=== PATIENT | female | born 1950 | race Caucasian/White ===

== ENCOUNTER 2019-04-04 07:52 | Day surgery (SDC) | payer OTHER, MEDICARE ==
--- NOTE | 2019-04-03 15:51 | RAD REPORT ---
EXAM DESCRIPTION: Reilly Dorantes (2 Views)04/03/2019 3:46 pm CLINICAL HISTORY: Preop for gallbladder surgery. Abdominal pain COMPARISON: 2008 FINDINGS: The lungs appear clear of acute infiltrate. The heart is normal size IMPRESSION: No acute abnormalities displayed
[2019-04-03 16:08] LABS: Absolute Lymphocytes (CBC) 0.7 K/uL (0.7-4.9); Basophils % 0.4 % (0-1.3); Hematocrit 42.1 % (36.0-45.0); MPV 7.2 fL (7.6-11.3); RBC Red Blood Cell Count 4.81 M/uL (3.86-4.86)
[2019-04-03 16:30] LABS: Albumin 3.8 g/dL (3.4-5.0); Bilirubin Direct 0.1 mg/dL (0-0.2); Bilirubin Total 0.4 mg/dL (0.2-1.0); Potassium 4.1 mmol/L (3.5-5.1); Protein, Total 7.2 g/dL (6.4-8.2)
[2019-04-03 16:36] LABS: Albumin 3.7 g/dL (3.4-5.0); Bilirubin Total 0.5 mg/dL (0.2-1.0); Protein, Total 6.9 g/dL (6.4-8.2)
[2019-04-03 16:43] LABS: Thyroid Stimulating Hormone 4.51 uIU/mL (0.360-3.740)
--- NOTE | 2019-04-03 22:17 | EKG ---
Test Date: 2019-04-03 Test Time: 15:31:51 [employer] Systems Administrator: CHRIS MEASUREMENT RESULTS: Intervals: Rate: 73 LA: 140 QRSD: 68 QT: 388 QTc: 427 [place]: P: 62 LA: 140 QRS: 14 T: 45 INTERPRETIVE STATEMENTS: Normal sinus rhythm Normal ECG Compared to ECG 02/12/2008 06:45:47 Sinus bradycardia no longer present Electronically Signed On 04-03-19 22:16:25 CDT by Carrington Valiente
[~2019-04-04 07:52] MED LIST: FENTANYL CITR 100 MCG/2 ML ONE; GLYCOPYRROLATE 0.2 MG/ML SYR ONE; LIDOCAINE 2% MPF 5 ML VIAL ONE; MIDAZOLAM HCL 2 MG/2 ML INJ ONE; PROPOFOL 200 MG/20 ML VIAL IV ONE; ROCURONIUM 50 MG/5 ML VIAL IV ONE; dexAMETHasone 10 MG/ML VIAL ONE
[2019-04-04] MEDS ORDERED: BUPIVACAINE 0.5% PF 10 ML VIAL ONE (08:05)
[2019-04-04] MEDS ORDERED: CEFOXITIN/SWI 1gm 1 GM/10 ML SYR ONE (08:07)
[2019-04-04] MEDS ORDERED: Ringers Lactate 1,000 ML IV ONE (08:07)
[2019-04-04] MEDS ORDERED: KETOROLAC 30 MG/ML INJ ONE (09:02)
[2019-04-04] MEDS ORDERED: NEOSTIGMINE 1 MG/ML -10 ML VIAL ONE (09:04)
[2019-04-04] MEDS ORDERED: GLYCOPYRROLATE 0.2 MG/ML SYR ONE (09:04)
[2019-04-04] MEDS ORDERED: Mastisol Adhesive Liq ONE (09:07)
[2019-04-04] MEDS: MEPERIDINE HCL 50 MG/ML ONE ×2 (09:57→10:04)
[2019-04-04] MEDS ORDERED: ONDANSETRON 4 MG/2 ML VIAL ONE (10:10)
[2019-04-04] MEDS ORDERED: HYDROCODONE/APAP 7.5/325 MG TAB ONE (11:01)
--- NOTE | 2019-04-04 15:25 | OP ---
Date of Procedure: 04/04/2019 Surgeon: Oscar Winters MD Dress Marker: RODRIGO Chan. Preoperative Diagnosis: Symptomatic cholelithiasis. Postoperative Diagnosis: Symptomatic cholelithiasis. Procedure: Laparoscopic cholecystectomy. Estimated Blood Loss: Minimal. Specimen: Gallbladder. Findings: As above. Anesthesia: General. Complications: None. Disposition: Patient tolerated the procedure, in stable condition, and taken to Recovery in good gen eral condition. Description Of Procedure: She was brought to the OR and placed in supine position. General anesthes ia was begun. Patient was prepped and draped in the usual sterile fashion. Marcaine 0.5% was infilt rated locally. A 15-blade was used to make a 1 cm supraumbilical midline incision. Subcutaneous tis shereen divided. Fascia was identified and divided. #1 Vicryl stay suture was placed. Peritoneal cavit y was entered with sharp and blunt dissection. 12 mm trocar was placed into the peritoneal cavity un mick direct vision. Pneumoperitoneum was established. Three 5 mm trocars placed, 1 in the epigastriu m just to the right of midline and 2 in the right subcostal region. Laparoscopy revealed chronic inf lammation of the gallbladder. Fundus retracted superiorly. Infundibulum was identified and retracte d inferolaterally. The cystic duct and cystic artery were clearly identified with blunt dissection. Clips placed. Both structures divided. Cautery was used to remove the gallbladder from the liver b ed. Bleeding in the liver bed was controlled with cautery. The gallbladder was retrieved through th e umbilicus via an EndoCatch bag. Right upper quadrant was irrigated. Effluent was clear. No evide nce of bleeding or bile leakage appreciated. Subsequently, all trocars were removed under direct vis ion. Stay sutures were tied to each other to approximate the fascial defect. Subcu wounds irrigated . Bleeding controlled with cautery. 3-0 chromic used to reapproximate subcutaneous tissue and close the skin. Sterile dressing was applied. The patient was awakened and taken to Recovery in good gen eral condition. Discharge Note: Patient will go to Day Surgery and home when stable. Disposition: Home. Condition: Stable. Discharge Instructions: Resume home medications and diet. Activity as tolerated. No heavy lifting. Remove outer dressing in 2 days. Shower. Keep wound clean and dry. Keep Steri-Strips on all time s follow up in my office in a week. Call for appointment. Tylenol No. 3, 1 tablet p.o. Q for p.r.n. pain. LIA/XOCHITL Voice ID: [id number] Report ID: [id number]
== END 2019-04-04 13:00 | disposition home or self-care (01) ==
LOC: OR 07:52
PROVIDERS: ATTEND Surgery
PROC: 0FT44ZZ Resection of Gallbladder, Percutaneous Endoscopic Approach (ICD-10-PCS; principal; 2019-04-04 09:00)
DX: K80.10 Calculus of gallbladder with chronic cholecystitis without obstruction (principal); K21.9 Gastro-esophageal reflux disease without esophagitis; R10.10 Upper abdominal pain, unspecified; E03.9 Hypothyroidism, unspecified; D50.9 Iron deficiency anemia, unspecified; Z85.42 Personal history of malignant neoplasm of other parts of uterus; Z88.2 Allergy status to sulfonamides; Z91.040 Latex allergy status; Z80.0 Family history of malignant neoplasm of digestive organs
CPT/HCPCS: 93005; 85025; 80048; 36415; 82150; 80076; 88304; 84443; 84439; 80053; 71046; 47562; J2704; J2710; J2250; J3010; J1100; J2175; J2405

== ENCOUNTER 2024-12-24 20:34 | Emergency (ER) | payer OTHER, MEDICARE ==
--- OUTSIDE RECORDS SUMMARY | 2024-12-24 20:41 | XMS REPORT | Continuity of Care Document ---
Author Name Unknown Address [address] [facility] [address] [place] [address] [facility] Address [address] [facility] [address] [place] [address] Care Team Providers Care Veterinary Medical Officer Name Role Phone [phone] Primary Care Physician Unavailab le SYSTEM, PROVIDER NOT IN Attending Clinician Unav ailable ZOË KERR Attending Clinician UnavailADIN Muir Attending Clinician Unavailable KAREN KIRK Attending Clinician Unavailable TIM WHALEN Attending Clinician Unavailable PATRICIA CORTEZ Attending Clinician Unavailable GIUSEPPE GAMBEL Attending Clinician UnavailPercy Bunn Attending Clinician UnavailADIN Muir Admitting Clinician Unavailable Physician, No Primary or Family Admitting Clinic deep Unavailable Payers Payer Name Policy Type Policy Number Effective Date Expirati on Date Source MEDICARE PART A AND B [id number] 2014 00:00:00 AARP-SECONDARY ONLY [id number] 2014 00:00:00 AARP 53 [id number] [facility] Problems Condition Name Condition Details Condition Category Status Onset Date Resolution Date Last Treatment Date Treating Clinician Comments Source [id number] OAB (overactiv e bladder) Problem [facility] [id number] Stress incontinen ce Problem [facility] [id number] Nocturia Problem Commo n [facility] [id number] S/P radiation > 12 weeks Problem [facility] [id number] Status post chemothera py Problem [facility] [id number] Lower urinary tract symptoms (LUTS) Problem [facility] [id number] Intrinsic sphincter deficiency (ISD) Problem [facility] Allergies, Adverse Reactions, Alerts Allergy Name Allergy Type Status Severity Reaction(s) Onset Date Inactive Date Treating Clinician Comments Source [facility] Active Med Hives 12-22 00:00: 00 MD Amy gibson SULFA (SULFONA MIDE ANTIBIOT ICS) Drug Class Active High Hives 12-22 00:00: 00 MD Amy gibson [employer]UG INGREDI Active Med Hives 12-22 00:00: 00 MD Amy gibson SULFA (SULFONA MIDE ANTIBIOT ICS) Drug Class Active High Hives 12-22 00:00: 00 MD Amy gibson [employer]UG INGREDI Active Med Hives 12-22 00:00: 00 MD Amy gibson SULFA (SULFONA MIDE ANTIBIOT ICS) Drug Class Active High Hives 12-22 00:00: 00 MD Amy gibson [employer] INGREDI Active Med Hives 12-22 00:00: 00 MD Amy gibson SULFA (SULFONA MIDE ANTIBIOT ICS) Drug Class Active High Hives 12-22 00:00: 00 MD Amy gibson [employer] INGREDI Active Med Hives 12-22 00:00: 00 MD Amy gibson SULFA (SULFONA MIDE ANTIBIOT ICS) Drug Class Active High Hives 12-22 00:00: 00 MD Amy gibson [employer] INGREDI Active Med Hives 12-22 00:00: 00 MD Amy gibson SULFA (SULFONA MIDE ANTIBIOT ICS) Drug Class Active High Hives 12-22 00:00: 00 MD Amy gibson [employer]GR[employer]I Active Med Hives 12-22 00:00: 00 MD Amy gibson SULFA (SULFONA MIDE ANTIBIOT ICS) Drug Class Active High Hives 0 12-22 00:00: 00 MD Amy gibson [employer] INGR[employer]I Active Med Hives 12-22 00:00: 00 MD Amy gibson SULFA (SULFONA MIDE ANTIBIOT ICS) Drug Class Active High Hives 12-22 00:00: 00 MD Amy gibson [employer] INGREDI Active Med Hives 12-22 00:00: 00 MD Amy gibson SULFA (SULFONA MIDE ANTIBIOT ICS) Drug Class Active High Hives 0 12-22 00:00: 00 MD Amy gibson [employer] INGREDI Active Med Hives 12-22 00:00: 00 MD Amy gibson SULFA (SULFONA MIDE ANTIBIOT ICS) Drug Class Active High Hives 12-22 00:00: 00 MD Amy gibson [employer] INGR[employer]I Active Med Hives 12-22 00:00: 00 MD Amy gibson SULFA (SULFONA MIDE ANTIBIOT ICS) Drug Class Active High Hives 12-22 00:00: 00 MD Amy gibson [employer] INGREDI Active Med Hives 12-22 00:00: 00 MD Amy gibson SULFA (SULFONA MIDE ANTIBIOT ICS) Drug Class Active High Hives 12-22 00:00: 00 MD Amy gibson [employer] INGREDI Active Med Hives 12-22 00:00: 00 MD Amy gibson SULFA (SULFONA MIDE ANTIBIOT ICS) Drug Class Active High Hives 12-22 00:00: 00 MD Amy gibson [employer] INGREDI Active Med Hives 12-22 00:00: 00 MD Amy gibson SULFA (SULFONA MIDE ANTIBIOT ICS) Drug Class Active High Hives 0 12-22 00:00: 00 MD Amy gibson [employer] INGREDI Active Med Hives 12-22 00:00: 00 MD Amy gibson SULFA (SULFONA MIDE ANTIBIOT ICS) Drug Class Active High Hives 12-22 00:00: 00 MD Amy gibson [employer]UG INGREDI Active Med Hives 12-22 00:00: 00 MD Amy gibson SULFA (SULFONA MIDE ANTIBIOT ICS) Drug Class Active High Hives 12-22 00:00: 00 MD Amy gibson [employer] INGREDI Active Med Hives 12-22 00:00: 00 MD Amy gibson SULFA (SULFONA MIDE ANTIBIOT ICS) Drug Class Active High Hives 12-22 00:00: 00 MD Amy gibson [employer] INGREDI Active Med Hives 12-22 00:00: 00 MD Amy gibson SULFA (SULFONA MIDE ANTIBIOT ICS) Drug Class Active High Hives 12-22 00:00: 00 MD Amy gibson [employer] INGREDI Active Med Hives 12-22 00:00: 00 MD Amy gibson SULFA (SULFONA MIDE ANTIBIOT ICS) Drug Class Active High Hives 12-22 00:00: 00 MD Amy gibson [employer]UG INGREDI Active Med Hives 12-22 00:00: 00 MD Amy gibson SULFA (SULFONA MIDE ANTIBIOT ICS) Drug Class Active High Hives 12-22 00:00: 00 MD Amy gibson [employer] INGREDI Active Med Hives 12-22 00:00: 00 MD Amy gibson SULFA (SULFONA MIDE ANTIBIOT ICS) Drug Class Active High Hives 12-22 00:00: 00 MD Amy gibson [employer] INGREDI Active Med Hives 12-22 00:00: 00 MD Amy gibson SULFA (SULFONA MIDE ANTIBIOT ICS) Drug Class Active High Hives 12-22 00:00: 00 MD Amy gibson [employer] INGREDI Active Med Hives 12-22 00:00: 00 MD Amy gibson SULFA (SULFONA MIDE ANTIBIOT ICS) Drug Class Active High Hives 12-22 00:00: 00 MD Amy gibosn [employer] INGREDI Active Med Hives 12-22 00:00: 00 MD Amy gibson SULFA (SULFONA MIDE ANTIBIOT ICS) Drug Class Active High Hives 12-22 00:00: 00 MD Amy gibson [employer] INGREDI Active Med Hives 12-22 00:00: 00 MD Amy gibson SULFA (SULFONA MIDE ANTIBIOT ICS) Drug Class Active High Hives 12-22 00:00: 00 Andjeanmarie gibson LAT[employer] DRUG INGREDI Active Med Hives 12-22 00:00: 00 MD Amy gibson SULFA (SULFONA MIDE ANTIBIOT ICS) Drug Class Active High Hives 12-22 00:00: 00 Andjeanmarie gibson [employer]UG INGREDI Active Med Hives 12-22 00:00: 00 MD Amy gibson SULFA (SULFONA MIDE ANTIBIOT ICS) Drug Class Active High Hives 12-22 00:00: 00 MD Amy gibson LAT[employer]UG INGREDI Active Med Hives 12-22 00:00: 00 MD Amy gibson SULFA (SULFONA MIDE ANTIBIOT ICS) Drug Class Active High Hives 12-22 00:00: 00 MD Amy gibson [employer]UG INGREDI Active Med Hives 12-22 00:00: 00 MD Amy gibson SULFA (SULFONA MIDE ANTIBIOT ICS) Drug Class Active High Hives 12-22 00:00: 00 MD Amy gibson [employer]UG INGREDI Active Med Hives 12-22 00:00: 00 MD Amy gibson SULFA (SULFONA MIDE ANTIBIOT ICS) Drug Class Active High Hives 12-22 00:00: 00 MD Amy gibson [employer] INGREDI Active Med Hives 12-22 00:00: 00 MD Amy gibson SULFA (SULFONA MIDE ANTIBIOT ICS) Drug Class Active High Hives 12-22 00:00: 00 MD Amy gibson [employer] INGREDI Active Med Hives 12-22 00:00: 00 MD Amy gibson SULFA (SULFONA MIDE ANTIBIOT ICS) Drug Class Active High Hives 12-22 00:00: 00 MD Amy gibson [employer]UG INGREDI Active Med Hives 12-22 00:00: 00 Andjeanmarie gibson SULFA (SULFONA MIDE ANTIBIOT ICS) Drug Class Active High Hives 12-22 00:00: 00 MD Amy gibson [employer]UG INGREDI Active Med Hives 12-22 00:00: 00 MD Amy gibson SULFA (SULFONA MIDE ANTIBIOT ICS) Drug Class Active High Hives 12-22 00:00: 00 Andjeanmarie gibson [employer]UG INGREDI Active Med Hives 12-22 00:00: 00 MD Amy gibson SULFA (SULFONA MIDE ANTIBIOT ICS) Drug Class Active High Hives 12-22 00:00: 00 Andjeanmarie gibson [employer]UG INGREDI Active Med Hives 12-22 00:00: 00 MD Amy gibson SULFA (SULFONA MIDE ANTIBIOT ICS) Drug Class Active High Hives 12-22 00:00: 00 MD Amy gibson [employer] INGREDI Active Med Hives 12-22 00:00: 00 MD Amy gibson SULFA (SULFONA MIDE ANTIBIOT ICS) Drug Class Active High Hives 12-22 00:00: 00 MD Amy gibson [employer] INGREDI Active Med Hives 12-22 00:00: 00 MD Amy gibson SULFA (SULFONA MIDE ANTIBIOT ICS) Drug Class Active High Hives 12-22 00:00: 00 MD Amy gibson [employer] INGREDI Active Med Hives 12-22 00:00: 00 MD Amy gibson SULFA (SULFONA MIDE ANTIBIOT ICS) Drug Class Active High Hives 12-22 00:00: 00 Andjeanmarie gibson [employer]UG INGREDI Active Med Hives 12-22 00:00: 00 MD Amy gibson SULFA (SULFONA MIDE ANTIBIOT ICS) Drug Class Active High Hives 12-22 00:00: 00 MD Amy gibson [employer]UG INGREDI Active Med Hives 12-22 00:00: 00 MD Amy gibson SULFA (SULFONA MIDE ANTIBIOT ICS) Drug Class Active High Hives 12-22 00:00: 00 MD Amy gibson [employer]UG INGREDI Active Med Hives 12-22 00:00: 00 MD Amy gibson SULFA (SULFONA MIDE ANTIBIOT ICS) Drug Class Active High Hives 12-22 00:00: 00 Andjeanmarie gibson LAT[employer] DRUG INGREDI Active Med Hives 12-22 00:00: 00 MD Amy gibson SULFA (SULFONA MIDE ANTIBIOT ICS) Drug Class Active High Hives 12-22 00:00: 00 MD Amy gibson [employer] INGREDI Active Med Hives 12-22 00:00: 00 MD Amy gibson SULFA (SULFONA MIDE ANTIBIOT ICS) Drug Class Active High Hives 12-22 00:00: 00 MD Amy gibson [employer]UG INGREDI Active Med Hives 12-22 00:00: 00 MD Amy gibson SULFA (SULFONA MIDE ANTIBIOT ICS) Drug Class Active High Hives 12-22 00:00: 00 MD Amy gibson [employer]UG INGREDI Active Med Hives 12-22 00:00: 00 MD Amy gibson SULFA (SULFONA MIDE ANTIBIOT ICS) Drug Class Active High Hives 12-22 00:00: 00 MD Amy gibson LAT[employer] DRUG INGREDI Active Med Hives 12-22 00:00: 00 MD Amy gibson SULFA (SULFONA MIDE ANTIBIOT ICS) Drug Class Active High Hives 12-22 00:00: 00 MD Amy gibson [employer]UG INGREDI Active Med Hives 12-22 00:00: 00 MD Amy gibson SULFA (SULFONA MIDE ANTIBIOT ICS) Drug Class Active High Hives 12-22 00:00: 00 MD Amy gibson LAT[employer]UG INGREDI Active Med Hives 12-22 00:00: 00 MD Amy gibson SULFA (SULFONA MIDE ANTIBIOT ICS) Drug Class Active High Hives 12-22 00:00: 00 MD Amy gibson [employer]UG INGREDI Active Med Hives 12-22 00:00: 00 MD Amy gibson SULFA (SULFONA MIDE ANTIBIOT ICS) Drug Class Active High Hives 12-22 00:00: 00 MD Amy gibson LAT[employer]UG INGREDI Active Med Hives 12-22 00:00: 00 MD Aym gibson SULFA (SULFONA MIDE ANTIBIOT ICS) Drug Class Active High Hives 12-22 00:00: 00 MD Amy gibson [employer]UG INGREDI Active Med Hives 12-22 00:00: 00 MD Amy gibson SULFA (SULFONA MIDE ANTIBIOT ICS) Drug Class Active High Hives 12-22 00:00: 00 MD Amy gibson LATEX DRUG INGREDI Active Med Hives 12-22 00:00: 00 MD Amy gibson SULFA (SULFONA MIDE ANTIBIOT ICS) Drug Class Active High Hives 12-22 00:00: 00 MD Amy gibson LATEX DRUG INGREDI Active Med Hives 12-22 00:00: 00 MD Amy gibson SULFA (SULFONA MIDE ANTIBIOT ICS) Drug Class Active High Hives 12-22 00:00: 00 MD Amy gibson LATEX DRUG INGREDI Active Med Hives 12-22 00:00: 00 MD Amy gibson SULFA (SULFONA MIDE ANTIBIOT ICS) Drug Class Active High Hives 12-22 00:00: 00 MD Amy gibson LATEX DRUG INGREDI Active Med Hives 12-22 00:00: 00 MD Amy gibson SULFA (SULFONA MIDE ANTIBIOT ICS) Drug Class Active High Hives 12-22 00:00: 00 MD Amy gibson LATEX DRUG INGREDI Active Med Hives 12-22 00:00: 00 MD Amy gibson SULFA (SULFONA MIDE ANTIBIOT ICS) Drug Class Active High Hives 12-22 00:00: 00 MD Amy gibson LATEX DRUG INGREDI Active Med Hives 12-22 00:00: 00 MD Amy gibson SULFA (SULFONA MIDE ANTIBIOT ICS) Drug Class Active High Hives 12-22 00:00: 00 MD Amy gibson LATEX DRUG INGREDI Active Med Hives 12-22 00:00: 00 MD Amy gibson SULFA (SULFONA MIDE ANTIBIOT ICS) Drug Class Active High Hives 12-22 00:00: 00 MD Amy gibson LATEX DRUG INGREDI Active Med Hives 12-22 00:00: 00 MD Amy gibson SULFA (SULFONA MIDE ANTIBIOT ICS) Drug Class Active High Hives 12-22 00:00: 00 MD Amy gibson LATEX DRUG INGREDI Active Med Hives 12-22 00:00: 00 MD Amy gibson SULFA (SULFONA MIDE ANTIBIOT ICS) Drug Class Active High Hives 12-22 00:00: 00 MD Amy gibson [employer]EX [employer]UG INGREDI Active Med Hives 12-22 00:00: 00 MD Amy gibson SULFA (SULFONA MIDE ANTIBIOT ICS) Drug Class Active High Hives 12-22 00:00: 00 MD Amy gibson LATEX DRUG INGREDI Active Med Hives 12-22 00:00: 00 MD Amy gibson SULFA (SULFONA MIDE ANTIBIOT ICS) Drug Class Active High Hives 12-22 00:00: 00 MD Amy gibson LATEX DRUG INGREDI Active Med Hives 12-22 00:00: 00 MD Amy gibson SULFA (SULFONA MIDE ANTIBIOT ICS) Drug Class Active High Hives 12-22 00:00: 00 MD Amy gibson LATEX DRUG INGREDI Active Med Hives 12-22 00:00: 00 MD Amy gibson SULFA (SULFONA MIDE ANTIBIOT ICS) Drug Class Active High Hives 12-22 00:00: 00 MD Amy gibson LATEX DRUG INGREDI Active Med Hives 12-22 00:00: 00 MD Amy gibson SULFA (SULFONA MIDE ANTIBIOT ICS) Drug Class Active High Hives 12-22 00:00: 00 MD Amy gibson LATEX DRUG INGREDI Active Med Hives 12-22 00:00: 00 MD Amy gibson SULFA (SULFONA MIDE ANTIBIOT ICS) Drug Class Active High Hives 12-22 00:00: 00 MD Amy gibson LATEX DRUG INGREDI Active Med Hives 12-22 00:00: 00 MD Amy gibson SULFA (SULFONA MIDE ANTIBIOT ICS) Drug Class Active High Hives 12-22 00:00: 00 Andjeanmarie gibson LATEX DRUG INGREDI Active Med Hives 12-22 00:00: 00 MD Amy gibson SULFA (SULFONA MIDE ANTIBIOT ICS) Drug Class Active High Hives 12-22 00:00: 00 Andjeanmarie gibson LATEX DRUG INGREDI Active Med Hives 12-22 00:00: 00 MD Amy gibson SULFA (SULFONA MIDE ANTIBIOT ICS) Drug Class Active High Hives 12-22 00:00: 00 MD Amy gibson LATEX DRUG INGREDI Active Med Hives 12-22 00:00: 00 MD Amy gibson SULFA (SULFONA MIDE ANTIBIOT ICS) Drug Class Active High Hives 12-22 00:00: 00 MD Amy gibson SULFA (SULFONA MIDE ANTIBIOT ICS) Drug Class Active High Hives 12-22 00:00: 00 MD Amy gibson LATEX DRUG INGREDI Active Med Hives 12-22 00:00: 00 MD Amy gibson SULFA (SULFONA MIDE ANTIBIOT ICS) Drug Class Active High Hives 12-22 00:00: 00 MD Amy gibson LATEX DRUG INGREDI Active Med Hives 12-22 00:00: 00 MD Amy gibson SULFA (SULFONA MIDE ANTIBIOT ICS) Drug Class Active High Hives 12-22 00:00: 00 Andjeanmarie gibson LATEX DRUG INGREDI Active Med Hives 12-22 00:00: 00 MD Amy gibson SULFA (SULFONA MIDE ANTIBIOT ICS) Drug Class Active High Hives 12-22 00:00: 00 MD Amy gibson LATEX DRUG INGREDI Active Med Hives 12-22 00:00: 00 MD Amy gibson SULFA (SULFONA MIDE ANTIBIOT ICS) Drug Class Active High Hives 12-22 00:00: 00 MD Amy gibson LATEX DRUG INGREDI Active Med Hives 0 12-22 00:00: 00 MD Amy gibson LATEX DRUG INGREDI Active Med Hives 12-22 00:00: 00 MD Amy gibson SULFA (SULFONA MIDE ANTIBIOT ICS) Drug Class Active High Hives 0 12-22 00:00: 00 Andjeanmarie gibson LATEX DRUG INGREDI Active Med Hives 12-22 00:00: 00 MD Amy gibson SULFA (SULFONA MIDE ANTIBIOT ICS) Drug Class Active High Hives 0 12-22 00:00: 00 MD Amy gibson LATEX DRUG INGREDI Active Med Hives 12-22 00:00: 00 MD Amy gibson SULFA (SULFONA MIDE ANTIBIOT ICS) Drug Class Active High Hives 12-22 00:00: 00 MD Amy gibson LATEX DRUG INGREDI Active Med Hives 12-22 00:00: 00 MD Amy gibson SULFA (SULFONA MIDE ANTIBIOT ICS) Drug Class Active High Hives 12-22 00:00: 00 MD Amy gibson LATEX DRUG INGREDI Active Med Hives 12-22 00:00: 00 MD Amy gibson SULFA (SULFONA MIDE ANTIBIOT ICS) Drug Class Active High Hives 12-22 00:00: 00 MD Amy gibson LATEX DRUG INGREDI Active Med Hives 12-22 00:00: 00 MD Amy gibson SULFA (SULFONA MIDE ANTIBIOT ICS) Drug Class Active High Hives 12-22 00:00: 00 Andjeanmarie gibson LATEX DRUG INGREDI Active Med Hives 12-22 00:00: 00 MD Amy gibson SULFA (SULFONA MIDE ANTIBIOT ICS) Drug Class Active High Hives 0 12-22 00:00: 00 MD Amy gibson LATEX DRUG INGREDI Active Med Hives 12-22 00:00: 00 MD Amy gibson SULFA (SULFONA MIDE ANTIBIOT ICS) Drug Class Active High Hives 12-22 00:00: 00 MD Amy gibson LATEX DRUG INGREDI Active Med Hives 12-22 00:00: 00 MD Amy gibson SULFA (SULFONA MIDE ANTIBIOT ICS) Drug Class Active High Hives 12-22 00:00: 00 MD Amy gibson LATEX DRUG INGREDI Active Med Hives 12-22 00:00: 00 MD Amy gibson SULFA (SULFONA MIDE ANTIBIOT ICS) Drug Class Active High Hives 12-22 00:00: 00 MD Amy gibson LATEX DRUG INGREDI Active Med Hives 12-22 00:00: 00 MD Amy gibson SULFA (SULFONA MIDE ANTIBIOT ICS) Drug Class Active High Hives 0 12-22 00:00: 00 MD Amy gibson LATEX DRUG INGREDI Active Med Hives 12-22 00:00: 00 MD Amy gibson SULFA (SULFONA MIDE ANTIBIOT ICS) Drug Class Active High Hives 12-22 00:00: 00 MD Amy gibson LATEX DRUG INGREDI Active Med Hives 12-22 00:00: 00 MD Amy gibson SULFA (SULFONA MIDE ANTIBIOT ICS) Drug Class Active High Hives 12-22 00:00: 00 MD Amy gibson LATEX DRUG INGREDI Active Med Hives 12-22 00:00: 00 MD Amy gibson SULFA (SULFONA MIDE ANTIBIOT ICS) Drug Class Active High Hives 12-22 00:00: 00 MD Amy gibson LATEX DRUG INGREDI Active Med Hives 12-22 00:00: 00 MD Amy gibson SULFA (SULFONA MIDE ANTIBIOT ICS) Drug Class Active High Hives 12-22 00:00: 00 MD Amy gibson LATEX DRUG INGREDI Active Med Hives 12-22 00:00: 00 MD Amy gibson SULFA (SULFONA MIDE ANTIBIOT ICS) Drug Class Active High Hives 12-22 00:00: 00 MD Amy gibson LATEX DRUG INGREDI Active Med Hives 12-22 00:00: 00 MD Anderso n SULFA (SULFONA MIDE ANTIBIOT ICS) Drug Class Active High Hives 12-22 00:00: 00 MD Amy gibson LATEX DRUG INGREDI Active Med Hives 12-22 00:00: 00 MD Amy gibson SULFA (SULFONA MIDE ANTIBIOT ICS) Drug Class Active High Hives 12-22 00:00: 00 MD Amy gibson LATEX DRUG INGREDI Active Med Hives 12-22 00:00: 00 MD Amy gibson SULFA (SULFONA MIDE ANTIBIOT ICS) Drug Class Active High Hives 12-22 00:00: 00 MD Amy gibson LATEX DRUG INGREDI Active Med Hives 12-22 00:00: 00 MD Amy gibson SULFA (SULFONA MIDE ANTIBIOT ICS) Drug Class Active High Hives 12-22 00:00: 00 MD Amy gibson LATEX DRUG INGREDI Active Med Hives 12-22 00:00: 00 MD Amy gibson SULFA (SULFONA MIDE ANTIBIOT ICS) Drug Class Active High Hives 12-22 00:00: 00 MD Amy gibson LATEX DRUG INGREDI Active Med Hives 12-22 00:00: 00 MD Amy gibson SULFA (SULFONA MIDE ANTIBIOT ICS) Drug Class Active High Hives 12-22 00:00: 00 MD Amy gibson LATEX DRUG INGREDI Active Med Hives 12-22 00:00: 00 MD Amy gibson SULFA (SULFONA MIDE ANTIBIOT ICS) Drug Class Active High Hives 12-22 00:00: 00 MD Amy gibson LATEX DRUG INGREDI Active Med Hives 12-22 00:00: 00 MD Amy gibson SULFA (SULFONA MIDE ANTIBIOT ICS) Drug Class Active High Hives 12-22 00:00: 00 MD Amy gibson LATEX [employer]UG INGREDI Active Med Hives 12-22 00:00: 00 MD Amy gibson SULFA (SULFONA MIDE ANTIBIOT ICS) Drug Class Active High Hives 12-22 00:00: 00 MD Amy gibson LATEX [employer]UG INGREDI Active Med Hives 12-22 00:00: 00 MD Amy gibson SULFA (SULFONA MIDE ANTIBIOT ICS) Drug Class Active High Hives 12-22 00:00: 00 MD Amy gibson LATEX DRUG INGREDI Active Med Hives 12-22 00:00: 00 MD Amy gibson SULFA (SULFONA MIDE ANTIBIOT ICS) Drug Class Active High Hives 12-22 00:00: 00 Andjeanmarie gibson LATEX DRUG INGREDI Active Med Hives 12-22 00:00: 00 MD Amy gibson SULFA (SULFONA MIDE ANTIBIOT ICS) Drug Class Active High Hives 12-22 00:00: 00 MD Amy gibson LATEX DRUG INGREDI Active Med Hives 12-22 00:00: 00 MD Amy gibson SULFA (SULFONA MIDE ANTIBIOT ICS) Drug Class Active High Hives 12-22 00:00: 00 MD Amy gibson LATEX DRUG INGREDI Active Med Hives 12-22 00:00: 00 MD Amy gibson SULFA (SULFONA MIDE ANTIBIOT ICS) Drug Class Active High Hives 12-22 00:00: 00 MD Amy gibson LATEX DRUG INGREDI Active Med Hives 12-22 00:00: 00 MD Amy gibson SULFA (SULFONA MIDE ANTIBIOT ICS) Drug Class Active High Hives 12-22 00:00: 00 MD Amy gibson LATEX DRUG INGREDI Active Med Hives 12-22 00:00: 00 MD Amy gibson SULFA (SULFONA MIDE ANTIBIOT ICS) Drug Class Active High Hives 12-22 00:00: 00 Andjeanmarie gibson LATEX DRUG INGREDI Active Med Hives 12-22 00:00: 00 MD Amy gibson SULFA (SULFONA MIDE ANTIBIOT ICS) Drug Class Active High Hives 12-22 00:00: 00 MD Amy gibson LATEX DRUG INGREDI Active Med Hives 12-22 00:00: 00 MD Amy gibson SULFA (SULFONA MIDE ANTIBIOT ICS) Drug Class Active High Hives 12-22 00:00: 00 MD Amy gibson LATEX DRUG INGREDI Active Med Hives 12-22 00:00: 00 MD Amy gibson SULFA (SULFONA MIDE ANTIBIOT ICS) Drug Class Active High Hives 12-22 00:00: 00 MD Amy gibson SULFA (SULFONA MIDE ANTIBIOT ICS) Drug Class Active High Hives 12-22 00:00: 00 MD Amy gibson LATEX DRUG INGREDI Active Med Hives 12-22 00:00: 00 MD Amy gibson SULFA (SULFONA MIDE ANTIBIOT ICS) Drug Class Active High Hives 12-22 00:00: 00 MD Amy gibson LATEX DRUG INGREDI Active Med Hives 12-22 00:00: 00 MD Amy gibson SULFA (SULFONA MIDE ANTIBIOT ICS) Drug Class Active High Hives 12-22 00:00: 00 MD Amy gibson LATEX DRUG INGREDI Active Med Hives 12-22 00:00: 00 MD Amy gibson SULFA (SULFONA MIDE ANTIBIOT ICS) Drug Class Active High Hives 12-22 00:00: 00 MD Amy gibson LATEX DRUG INGREDI Active Med Hives 12-22 00:00: 00 MD Amy gibson SULFA (SULFONA MIDE ANTIBIOT ICS) Drug Class Active High Hives 12-22 00:00: 00 MD Amy gibson LATEX DRUG INGREDI Active Med Hives 12-22 00:00: 00 MD Amy gibson SULFA (SULFONA MIDE ANTIBIOT ICS) Drug Class Active High Hives 12-22 00:00: 00 MD Amy gibson LATEX DRUG INGREDI Active Med Hives 12-22 00:00: 00 MD Amy gibson LATEX DRUG INGREDI Active Med Hives 12-22 00:00: 00 MD Amy gibson SULFA (SULFONA MIDE ANTIBIOT ICS) Drug Class Active High Hives 12-22 00:00: 00 MD Amy gibson LATEX DRUG INGREDI Active Med Hives 12-22 00:00: 00 MD Anderso n SULFA (SULFONA MIDE ANTIBIOT ICS) Drug Class Active High Hives 0 12-22 00:00: 00 MD Amy gibson [employer]UG INGREDI Active Med Hives 12-22 00:00: 00 MD Amy gibson SULFA (SULFONA MIDE ANTIBIOT ICS) Drug Class Active High Hives 12-22 00:00: 00 Andjeanmarie gibson LATEX DRUG INGREDI Active Med Hives 12-22 00:00: 00 MD Amy gibson SULFA (SULFONA MIDE ANTIBIOT ICS) Drug Class Active High Hives 12-22 00:00: 00 Andjeanmarie gibson LATEX DRUG INGREDI Active Med Hives 12-22 00:00: 00 MD Amy gibson SULFA (SULFONA MIDE ANTIBIOT ICS) Drug Class Active High Hives 12-22 00:00: 00 MD Amy gibson LATEX DRUG INGREDI Active Med Hives 12-22 00:00: 00 MD Amy gibson SULFA (SULFONA MIDE ANTIBIOT ICS) Drug Class Active High Hives 12-22 00:00: 00 MD Amy gibson LATEX DRUG INGREDI Active Med Hives 12-22 00:00: 00 MD Amy gibson SULFA (SULFONA MIDE ANTIBIOT ICS) Drug Class Active High Hives 12-22 00:00: 00 MD Amy gibson LATEX DRUG INGREDI Active Med Hives 12-22 00:00: 00 MD Amy gibson SULFA (SULFONA MIDE ANTIBIOT ICS) Drug Class Active High Hives 12-22 00:00: 00 Andjeanmarie gibson LATEX DRUG INGREDI Active Med Hives 12-22 00:00: 00 MD Amy gibson SULFA (SULFONA [facility] I[facility]) Drug Class Active High Hives 12-22 00:00: 00 MD Amy gibson LATEX DRUG INGREDI Active Med Hives 12-22 00:00: 00 MD Amy gibson SULFA ([facility] [facility]) Drug Class Active High Hives 12-22 00:00: 00 MD Amy gibson SULFA ([facility] [facility] I[facility]) Drug Class Active High Hives 12-22 00:00: 00 MD Amy gibson LATEX DRUG INGREDI Active Med Hives 12-22 00:00: 00 MD Amy gibson SULFA ([facility] [facility] [facility]) Drug Class Active High Hives 12-22 00:00: 00 Andjeanmarie gibson LATEX DRUG INGREDI Active Med Hives 12-22 00:00: 00 MD Amy gibson SULFA ([facility] [facility] I[facility]) Drug Class Active High Hives 12-22 00:00: 00 Andjeanmarie gibson LATEX DRUG INGREDI Active Med Hives 12-22 00:00: 00 MD Amy gibson SULFA ([facility] [facility] ICS) Drug Class Active High Hives 12-22 00:00: 00 MD Amy gibson LATEX DRUG INGREDI Active Med Hives 12-22 00:00: 00 MD Amy gibson SULFA ([facility] [facility] I[facility]) Drug Class Active High Hives 12-22 00:00: 00 MD Amy gibson LATEX DRUG INGREDI Active Med Hives 12-22 00:00: 00 MD Amy gibson SULFA (SUL[facility]IB[employer] ICS) Drug Class Active High Hives 12-22 00:00: 00 MD Amy gibson LATEX DRUG INGREDI Active Med Hives 12-22 00:00: 00 MD Amy gibson LATEX DRUG INGREDI Active Med Hives 12-22 00:00: 00 MD Amy gibson SULFA ([facility] [facility] [facility]) Drug Class Active High Hives 12-22 00:00: 00 Andjeanmarie gibson LATEX DRUG INGREDI Active Med Hives 12-22 00:00: 00 MD Amy gibson SULFA ([facility] [facility]) Drug Class Active High Hives 12-22 00:00: 00 MD Amy gibson LATEX DRUG INGREDI Active Med Hives 12-22 00:00: 00 MD Amy gibson SULFA ([facility] I[facility]) Drug Class Active High Hives 12-22 00:00: 00 MD Amy gibson LATEX DRUG INGREDI Active Med Hives 12-22 00:00: 00 MD Amy gibson SULFA ([facility] [facility]) Drug Class Active High Hives 12-22 00:00: 00 MD Amy gibson LATEX DRUG INGREDI Active Med Hives 12-22 00:00: 00 MD Amy gibson SULFA ([facility] [facility] [facility]) Drug Class Active High Hives 12-22 00:00: 00 Andjeanmarie gibson SULFA (SULFONA MIDE ANTIBIOT ICS) Drug Class Active High Hives 12-22 00:00: 00 MD Amy gibson [facility] [facility] Active Med Hives 12-22 00:00: 00 MD Amy gibson SULFA (SULFONA MIDE ANTIBIOT ICS) Drug Class Active High Hives 12-22 00:00: 00 MD Amy gibson [employer] Active Med Hives 12-22 00:00: 00 MD Amy gibson SULFA (SULFONA MIDE ANTIBIOT ICS) Drug Class Active High Hives 12-22 00:00: 00 MD Amy gibson [employer] Active Med Hives 12-22 00:00: 00 MD Amy gibson SULFA (SULFONA MIDE ANTIBIOT ICS) Drug Class Active High Hives 12-22 00:00: 00 MD Amy gibson [employer] Active Med Hives 12-22 00:00: 00 MD Amy gibson SULFA (SULFONA MIDE ANTIBIOT ICS) Drug Class Active High Hives 12-22 00:00: 00 MD Amy gibson [employer] Active Med Hives 12-22 00:00: 00 MD Amy gibson [employer] Active Med Hives 12-22 00:00: 00 MD Amy gibson SULFA (SULFONA MIDE ANTIBIOT ICS) Drug Class Active High Hives 12-22 00:00: 00 MD Amy gibson [employer] Active Med Hives 12-22 00:00: 00 MD Amy gibson SULFA (SULFONA MIDE ANTIBIOT ICS) Drug Class Active High Hives 0 12-22 00:00: 00 MD Amy gibson [employer] Active Med Hives 12-22 00:00: 00 MD Amy gibson SULFA (SULFONA MIDE ANTIBIOT ICS) Drug Class Active High Hives 0 12-22 00:00: 00 MD Amy gibson [employer] Active Med Hives 12-22 00:00: 00 MD Amy gibson SULFA (SULFONA MIDE ANTIBIOT ICS) Drug Class Active High Hives 12-22 00:00: 00 MD Amy gibson [employer] Active Med Hives 12-22 00:00: 00 MD Amy gibson SULFA (SULFONA MIDE ANTIBIOT ICS) Drug Class Active High Hives 0 12-22 00:00: 00 MD Amy gibson [employer] Active Med Hives 12-22 00:00: 00 MD Amy gibson SULFA (SULFONA MIDE ANTIBIOT ICS) Drug Class Active High Hives 12-22 00:00: 00 MD Amy gibson [employer] Active Med Hives 12-22 00:00: 00 MD Amy gibson SULFA (SULFONA MIDE ANTIBIOT ICS) Drug Class Active High Hives 12-22 00:00: 00 MD Amy gibson [employer] Active Med Hives 12-22 00:00: 00 MD Amy gibson SULFA (SULFONA MIDE ANTIBIOT ICS) Drug Class Active High Hives 12-22 00:00: 00 Andjeanmarie gibson [employer] Active Med Hives 12-22 00:00: 00 MD Amy gibson SULFA (SULFONA MIDE ANTIBIOT ICS) Drug Class Active High Hives 12-22 00:00: 00 MD Amy gibson [employer] Active Med Hives 12-22 00:00: 00 MD Amy gibson SULFA (SULFONA MIDE ANTIBIOT ICS) Drug Class Active High Hives 201612-22 00:00: 00 MD Amy gibson [employer] Active Med Hives 0 12-22 00:00: 00 MD Amy gibson SULFA (SULFONA MIDE ANTIBIOT ICS) Drug Class Active High Hives 0 12-22 00:00: 00 MD Amy gibson SULFA (SULFONA MIDE ANTIBIOT ICS) Drug Class Active High Hives 0 12-22 00:00: 00 MD Amy gibson [employer] Active Med Hives 0 12-22 00:00: 00 MD Amy gibson SULFA (SULFONA MIDE ANTIBIOT ICS) Drug Class Active High Hives 0 12-22 00:00: 00 MD Amy gibson [employer] Active Med Hives 12-22 00:00: 00 MD Amy gibson SULFA (SULFONA MIDE ANTIBIOT ICS) Drug Class Active High Hives 0 12-22 00:00: 00 MD Amy gibson [employer] Active Med Hives 0 12-22 00:00: 00 MD Amy gibson SULFA (SULFONA MIDE ANTIBIOT ICS) Drug Class Active High Hives 0 12-22 00:00: 00 MD Amy gibson [employer] Active Med Hives 0 12-22 00:00: 00 MD Amy gibson SULFA (SULFONA MIDE ANTIBIOT ICS) Drug Class Active High Hives 0 12-22 00:00: 00 MD Amy gibson [employer] Active Med Hives 12-22 00:00: 00 MD Amy gibson [employer] Active Med Hives 12-22 00:00: 00 MD Amy gibson SULFA (SULFONA MIDE ANTIBIOT ICS) Drug Class Active High Hives 0 12-22 00:00: 00 MD Amy gibson [employer] Active Med Hives 0 12-22 00:00: 00 MD Amy gibson SULFA (SULFONA MIDE ANTIBIOT ICS) Drug Class Active High Hives 0 12-22 00:00: 00 MD Amy gibson [employer] Active Med Hives 0 12-22 00:00: 00 MD Anderso n SULFA (SULFONA MIDE ANTIBIOT ICS) Drug Class Active High Hives 12-22 00:00: 00 MD Amy gibson [employer] Active Med Hives 12-22 00:00: 00 MD Amy gibson SULFA (SULFONA MIDE ANTIBIOT ICS) Drug Class Active High Hives 12-22 00:00: 00 Andjeanmarie gibson [employer] Active Med Hives 12-22 00:00: 00 MD Amy gibson SULFA (SULFONA MIDE ANTIBIOT ICS) Drug Class Active High Hives 12-22 00:00: 00 Andjeanmarie gibson [employer] Active Med Hives 12-22 00:00: 00 MD Amy gibson SULFA (SULFONA MIDE ANTIBIOT ICS) Drug Class Active High Hives 12-22 00:00: 00 MD Amy gibson SULFA (SULFONA MIDE ANTIBIOT ICS) Drug Class Active High Hives 12-22 00:00: 00 MD Amy gibson [employer] Active Med Hives 12-22 00:00: 00 MD Amy gibson SULFA (SULFONA MIDE ANTIBIOT ICS) Drug Class Active High Hives 12-22 00:00: 00 MD Amy gibson [employer] Active Med Hives 12-22 00:00: 00 MD Amy gibson SULFA (SULFONA MIDE ANTIBIOT ICS) Drug Class Active High Hives 12-22 00:00: 00 MD Amy gibson [employer] Active Med Hives 12-22 00:00: 00 MD Amy gibson SULFA (SULFONA MIDE ANTIBIOT ICS) Drug Class Active High Hives 12-22 00:00: 00 MD Amy gibson [employer] Active Med Hives 12-22 00:00: 00 MD Amy gibson SULFA (SULFONA MIDE ANTIBIOT ICS) Drug Class Active High Hives 12-22 00:00: 00 MD Amy gibson [employer] Active Med Hives 12-22 00:00: 00 MD mAy gibson [employer] Active Med Hives 12-22 00:00: 00 MD Amy gibson SULFA (SULFONA MIDE ANTIBIOT ICS) Drug Class Active High Hives 12-22 00:00: 00 Andjeanmarie gibson [employer] Active Med Hives 12-22 00:00: 00 MD Amy gibson SULFA (SULFONA MIDE ANTIBIOT ICS) Drug Class Active High Hives 12-22 00:00: 00 MD Amy gibson [employer] Active Med Hives 12-22 00:00: 00 MD Amy gibson SULFA (SULFONA MIDE ANTIBIOT ICS) Drug Class Active High Hives 12-22 00:00: 00 MD Amy gibson [employer] Active Med Hives 12-22 00:00: 00 MD Amy gibson SULFA (SULFONA MIDE ANTIBIOT ICS) Drug Class Active High Hives 12-22 00:00: 00 MD Amy gibson [employer] Active Med Hives 12-22 00:00: 00 MD Amy gibson SULFA (SULFONA MIDE ANTIBIOT ICS) Drug Class Active High Hives 12-22 00:00: 00 MD Amy gibson [employer] Active Med Hives 12-22 00:00: 00 MD Amy gibson SULFA (SULFONA MIDE ANTIBIOT ICS) Drug Class Active High Hives 12-22 00:00: 00 MD Amy gibson [employer] Active Med Hives 12-22 00:00: 00 MD Amy gibson SULFA (SULFONA MIDE ANTIBIOT ICS) Drug Class Active High Hives 12-22 00:00: 00 MD Amy gibson [employer] Active Med Hives 12-22 00:00: 00 MD Amy gibson SULFA (SULFONA MIDE ANTIBIOT ICS) Drug Class Active High Hives 12-22 00:00: 00 MD Amy gibson SULFA (SULFONA MIDE ANTIBIOT ICS) Drug Class Active High Hives 12-22 00:00: 00 MD Amy gibson [employer] Active Med Hives 12-22 00:00: 00 Andjeanmarie gibson SULFA (SULFONA MIDE ANTIBIOT ICS) Drug Class Active High Hives 12-22 00:00: 00 Andjeanmarie gibson [employer] Active Med Hives 12-22 00:00: 00 Andjeanmarie gibson SULFA (SULFONA MIDE ANTIBIOT ICS) Drug Class Active High Hives 12-22 00:00: 00 Andjeanmarie gibson [employer] Active Med Hives 12-22 00:00: 00 MD Amy gibson SULFA (SULFONA MIDE ANTIBIOT ICS) Drug Class Active High Hives 12-22 00:00: 00 MD Amy gibson [employer] Active Med Hives 12-22 00:00: 00 Andjeanmarie gibson [employer] Active Med Hives 12-22 00:00: 00 MD Amy gibson SULFA (SULFONA MIDE ANTIBIOT ICS) Drug Class Active High Hives 12-22 00:00: 00 MD Amy gibson [employer] Active Med Hives 12-22 00:00: 00 MD Amy gibson SULFA (SULFONA MIDE ANTIBIOT ICS) Drug Class Active High Hives 12-22 00:00: 00 MD Amy gibson [employer] Active Med Hives 12-22 00:00: 00 MD Amy gibson SULFA (SULFONA MIDE ANTIBIOT ICS) Drug Class Active High Hives 12-22 00:00: 00 Andjeanmarie gibson [employer] Active Med Hives 12-22 00:00: 00 Andjeanmarie gibson SULFA (SULFONA MIDE ANTIBIOT ICS) Drug Class Active High Hives 12-22 00:00: 00 Andjeanmarie gibson [employer] Active Med Hives 12-22 00:00: 00 MD Amy gibson SULFA (SULFONA MIDE ANTIBIOT ICS) Drug Class Active High Hives 12-22 00:00: 00 MD Amy gibson SULFA (SULFONA MIDE ANTIBIOT ICS) Drug Class Active High Hives 12-22 00:00: 00 MD Amy gibson [employer] Active Med Hives 12-22 00:00: 00 MD Amy gibson SULFA (SULFONA MIDE ANTIBIOT ICS) Drug Class Active High Hives 12-22 00:00: 00 Andjeanmarie gibson [employer] Active Med Hives 12-22 00:00: 00 MD Amy gibson SULFA (SULFONA MIDE ANTIBIOT ICS) Drug Class Active High Hives 12-22 00:00: 00 Andjeanmarie gibson [employer] Active Med Hives 12-22 00:00: 00 MD Amy gibson SULFA (SULFONA MIDE ANTIBIOT ICS) Drug Class Active High Hives 12-22 00:00: 00 MD Amy gibson [employer] Active Med Hives 12-22 00:00: 00 MD Amy gibson SULFA (SULFONA MIDE ANTIBIOT ICS) Drug Class Active High Hives 12-22 00:00: 00 MD Amy gibson [employer] Active Med Hives 12-22 00:00: 00 MD Amy gibson [employer] Active Med Hives 12-22 00:00: 00 MD Amy gibson SULFA (SULFONA MIDE ANTIBIOT ICS) Drug Class Active High Hives 12-22 00:00: 00 MD Amy gibson [employer] Active Med Hives 12-22 00:00: 00 MD Amy gibson SULFA (SULFONA MIDE ANTIBIOT ICS) Drug Class Active High Hives 12-22 00:00: 00 Andjeanmarie gibson [employer] Active Med Hives 12-22 00:00: 00 MD Amy gibson SULFA (SULFONA MIDE ANTIBIOT ICS) Drug Class Active High Hives 12-22 00:00: 00 MD Amy gibson [employer] Active Med Hives 12-22 00:00: 00 MD Amy gibson SULFA (SULFONA MIDE ANTIBIOT ICS) Drug Class Active High Hives 12-22 00:00: 00 MD Amy gibson [employer] Active Med Hives 12-22 00:00: 00 MD Amy gibson SULFA (SULFONA MIDE ANTIBIOT ICS) Drug Class Active High Hives 12-22 00:00: 00 MD Amy gibson SULFA (SULFONA MIDE ANTIBIOT ICS) Drug Class Active High Hives 0 12-22 00:00: 00 MD Amy gibson [employer] Active Med Hives 12-22 00:00: 00 MD Amy gibson SULFA (SULFONA MIDE ANTIBIOT ICS) Drug Class Active High Hives 12-22 00:00: 00 MD Amy gibson [employer] Active Med Hives 12-22 00:00: 00 MD Amy gibson SULFA (SULFONA MIDE ANTIBIOT ICS) Drug Class Active High Hives 12-22 00:00: 00 MD Amy gibson [employer] Active Med Hives 12-22 00:00: 00 MD Amy gibson SULFA (SULFONA MIDE ANTIBIOT ICS) Drug Class Active High Hives 12-22 00:00: 00 MD Amy gibson [employer] Active Med Hives 12-22 00:00: 00 MD Amy gibson [employer] Active Med Hives 12-22 00:00: 00 MD Amy gibson SULFA (SULFONA MIDE ANTIBIOT ICS) Drug Class Active High Hives 12-22 00:00: 00 MD Amy gibson [employer] Active Med Hives 12-22 00:00: 00 MD Amy gibson SULFA (SULFONA MIDE ANTIBIOT ICS) Drug Class Active High Hives 12-22 00:00: 00 MD Amy gibson [employer] Active Med Hives 12-22 00:00: 00 MD Amy gibson SULFA (SULFONA MIDE ANTIBIOT ICS) Drug Class Active High Hives 12-22 00:00: 00 MD Amy gibson [employer] Active Med Hives 12-22 00:00: 00 MD Amy gibson SULFA (SULFONA MIDE ANTIBIOT ICS) Drug Class Active High Hives 12-22 00:00: 00 MD Amy gibson SULFA (SULFONA MIDE ANTIBIOT ICS) Drug Class Active High Hives 12-22 00:00: 00 MD Amy gibson [employer] Active Med Hives 12-22 00:00: 00 Andjeanmarie gibson SULFA (SULFONA MIDE ANTIBIOT ICS) Drug Class Active High Hives 12-22 00:00: 00 Andjeanmarie gibson [employer] Active Med Hives 12-22 00:00: 00 Andjeanmarie gibson SULFA (SULFONA MIDE ANTIBIOT ICS) Drug Class Active High Hives 12-22 00:00: 00 Andjeanmarie gibson [employer] Active Med Hives 12-22 00:00: 00 MD Amy gibson SULFA (SULFONA MIDE ANTIBIOT ICS) Drug Class Active High Hives 12-22 00:00: 00 MD Amy gibson [employer] Active Med Hives 12-22 00:00: 00 Andjeanmarie gibosn [employer] Active Med Hives 12-22 00:00: 00 MD Amy gibson SULFA (SULFONA MIDE ANTIBIOT ICS) Drug Class Active High Hives 12-22 00:00: 00 MD Amy gibosn [employer] Active Med Hives 12-22 00:00: 00 MD Amy gibson SULFA (SULFONA MIDE ANTIBIOT ICS) Drug Class Active High Hives 12-22 00:00: 00 MD Amy gibson [employer] Active Med Hives 12-22 00:00: 00 MD Amy gibson SULFA (SULFONA MIDE ANTIBIOT ICS) Drug Class Active High Hives 12-22 00:00: 00 Andjeanmarie gibson [employer] Active Med Hives 12-22 00:00: 00 MD Amy gibson SULFA (SULFONA MIDE ANTIBIOT ICS) Drug Class Active High Hives 12-22 00:00: 00 MD Amy gibson [employer] Active Med Hives 12-22 00:00: 00 MD Amy gibson SULFA (SULFONA MIDE ANTIBIOT ICS) Drug Class Active High Hives 12-22 00:00: 00 MD Amy gibson [employer] Active Med Hives 12-22 00:00: 00 MD Amy gibson SULFA (SULFONA MIDE ANTIBIOT ICS) Drug Class Active High Hives 12-22 00:00: 00 MD Amy gibson [employer] Active Med Hives 12-22 00:00: 00 MD Amy gibson SULFA (SULFONA MIDE ANTIBIOT ICS) Drug Class Active High Hives 12-22 00:00: 00 MD Amy gibson [employer] Active Med Hives 12-22 00:00: 00 MD Amy gibson SULFA (SULFONA MIDE ANTIBIOT ICS) Drug Class Active High Hives 12-22 00:00: 00 MD Amy gibson [employer] Active Med Hives 12-22 00:00: 00 MD Amy gibson SULFA (SULFONA MIDE ANTIBIOT ICS) Drug Class Active High Hives 12-22 00:00: 00 MD Amy gibson SULFA (SULFONA MIDE ANTIBIOT ICS) Drug Class Active High Hives 12-22 00:00: 00 MD Amy gibson [employer] Active Med Hives 12-22 00:00: 00 MD Amy gibson SULFA (SULFONA MIDE ANTIBIOT ICS) Drug Class Active High Hives 12-22 00:00: 00 MD Amy gibson [employer] Active Med Hives 12-22 00:00: 00 MD Amy gibson SULFA (SULFONA MIDE ANTIBIOT ICS) Drug Class Active High Hives 12-22 00:00: 00 MD Amy gibson [employer] Active Med Hives 12-22 00:00: 00 MD Amy gibson SULFA (SULFONA MIDE ANTIBIOT ICS) Drug Class Active High Hives 12-22 00:00: 00 MD Amy gibson [employer] Active Med Hives 12-22 00:00: 00 MD Amy gibson SULFA (SULFONA MIDE ANTIBIOT ICS) Drug Class Active High Hives 0 12-22 00:00: 00 MD Amy gibson [employer] Active Med Hives 12-22 00:00: 00 Andjeanmarie gibson [employer] Active Med Hives 12-22 00:00: 00 MD Amy gibson SULFA (SULFONA MIDE ANTIBIOT ICS) Drug Class Active High Hives 0 12-22 00:00: 00 MD Amy gibson [employer] Active Med Hives 12-22 00:00: 00 MD Amy gibson SULFA (SULFONA MIDE ANTIBIOT ICS) Drug Class Active High Hives 0 12-22 00:00: 00 MD Amy gibson [employer] Active Med Hives 12-22 00:00: 00 MD Amy gibson SULFA (SULFONA MIDE ANTIBIOT ICS) Drug Class Active High Hives 0 12-22 00:00: 00 MD Amy gibson [employer] Active Med Hives 12-22 00:00: 00 MD Amy gibson SULFA (SULFONA MIDE ANTIBIOT ICS) Drug Class Active High Hives 0 12-22 00:00: 00 MD Amy gibson [employer] Active Med Hives 12-22 00:00: 00 MD Amy gibson SULFA (SULFONA MIDE ANTIBIOT ICS) Drug Class Active High Hives 12-22 00:00: 00 MD Amy gibson [employer] Active Med Hives 12-22 00:00: 00 MD Amy gibson SULFA (SULFONA MIDE ANTIBIOT ICS) Drug Class Active High Hives 12-22 00:00: 00 MD Amy gibson [employer] Active Med Hives 12-22 00:00: 00 MD Amy gibson SULFA (SULFONA MIDE ANTIBIOT ICS) Drug Class Active High Hives 12-22 00:00: 00 MD Amy gibson [employer] Active Med Hives 12-22 00:00: 00 MD Amy gibson SULFA (SULFONA MIDE ANTIBIOT ICS) Drug Class Active High Hives 0 12-22 00:00: 00 MD Amy gibson [employer] Active Med Hives 12-22 00:00: 00 MD Amy gibson SULFA (SULFONA MIDE ANTIBIOT ICS) Drug Class Active High Hives 12-22 00:00: 00 Andjeanmarie gibson [employer] Active Med Hives 12-22 00:00: 00 MD Amy gibson SULFA (SULFONA MIDE ANTIBIOT ICS) Drug Class Active High Hives 12-22 00:00: 00 Andjeanmarie gibson [employer] Active Med Hives 12-22 00:00: 00 MD Amy gibson SULFA (SULFONA MIDE ANTIBIOT ICS) Drug Class Active High Hives 12-22 00:00: 00 MD Amy gibson [employer] Active Med Hives 12-22 00:00: 00 MD Amy gibson SULFA (SULFONA MIDE ANTIBIOT ICS) Drug Class Active High Hives 12-22 00:00: 00 MD Amy gibson [employer] Active Med Hives 12-22 00:00: 00 MD Amy gibson SULFA (SULFONA MIDE ANTIBIOT ICS) Drug Class Active High Hives 12-22 00:00: 00 MD Amy gibson [employer] Active Med Hives 12-22 00:00: 00 MD Amy gibson SULFA (SULFONA MIDE ANTIBIOT ICS) Drug Class Active High Hives 12-22 00:00: 00 MD Amy gibson [employer] Active Med Hives 12-22 00:00: 00 MD Amy gibson SULFA (SULFONA MIDE ANTIBIOT ICS) Drug Class Active High Hives 12-22 00:00: 00 MD Amy gibson [employer] Active Med Hives 12-22 00:00: 00 MD Amy gibson SULFA (SULFONA MIDE ANTIBIOT ICS) Drug Class Active High Hives 12-22 00:00: 00 MD Anderso n SULFA (SULFONA MIDE ANTIBIOT ICS) Drug Class Active High Hives 12-22 00:00: 00 Andjeanmarie gibson [employer] Active Med Hives 12-22 00:00: 00 MD Amy gibson SULFA (SULFONA MIDE ANTIBIOT ICS) Drug Class Active High Hives 12-22 00:00: 00 Andjeanmarie gibson [employer] Active Med Hives 12-22 00:00: 00 MD Amy gibson SULFA (SULFONA MIDE ANTIBIOT ICS) Drug Class Active High Hives 12-22 00:00: 00 Andjeanmarie gibson [employer] Active Med Hives 12-22 00:00: 00 MD Amy gibson SULFA (SULFONA MIDE ANTIBIOT ICS) Drug Class Active High Hives 12-22 00:00: 00 MD Amy gibson [employer] Active Med Hives 12-22 00:00: 00 MD Amy gibson SULFA (SULFONA MIDE ANTIBIOT ICS) Drug Class Active High Hives 12-22 00:00: 00 MD Amy gibson [employer] Active Med Hives 12-22 00:00: 00 MD Amy gibson [employer] Active Med Hives 12-22 00:00: 00 MD Amy gibson SULFA (SULFONA MIDE ANTIBIOT ICS) Drug Class Active High Hives 12-22 00:00: 00 MD Amy gibson [employer] Active Med Hives 12-22 00:00: 00 MD Amy gibson SULFA (SULFONA MIDE ANTIBIOT ICS) Drug Class Active High Hives 12-22 00:00: 00 Andjeanmarie gibson [employer] Active Med Hives 12-22 00:00: 00 MD Amy gibson SULFA (SULFONA MIDE ANTIBIOT ICS) Drug Class Active High Hives 12-22 00:00: 00 MD Amy gibson [employer] Active Med Hives 12-22 00:00: 00 MD Amy gibson SULFA (SULFONA MIDE ANTIBIOT ICS) Drug Class Active High Hives 12-22 00:00: 00 MD Amy gibson [employer] Active Med Hives 12-22 00:00: 00 MD Amy gibson SULFA (SULFONA MIDE ANTIBIOT ICS) Drug Class Active High Hives 12-22 00:00: 00 MD Amy gibson [employer] Active Med Hives 0 12-22 00:00: 00 MD Amy gibson SULFA (SULFONA MIDE ANTIBIOT ICS) Drug Class Active High Hives 0 12-22 00:00: 00 MD Amy gibson SULFA (SULFONA MIDE ANTIBIOT ICS) Drug Class Active High Hives 12-22 00:00: 00 MD Amy gibson [employer] Active Med Hives 12-22 00:00: 00 MD Amy gibson SULFA (SULFONA MIDE ANTIBIOT ICS) Drug Class Active High Hives 0 12-22 00:00: 00 MD Amy gibson [employer] Active Med Hives 12-22 00:00: 00 MD Amy gibson SULFA (SULFONA MIDE ANTIBIOT ICS) Drug Class Active High Hives 0 12-22 00:00: 00 MD Amy gibson [employer] Active Med Hives 12-22 00:00: 00 MD Amy gibson SULFA (SULFONA MIDE ANTIBIOT ICS) Drug Class Active High Hives 0 12-22 00:00: 00 MD Amy gibson [employer] Active Med Hives 12-22 00:00: 00 MD Amy gibson SULFA (SULFONA MIDE ANTIBIOT ICS) Drug Class Active High Hives 12-22 00:00: 00 MD Amy gibson [employer] Active Med Hives 12-22 00:00: 00 MD Amy gibson [employer] Active Med Hives 12-22 00:00: 00 MD Amy gibson SULFA (SULFONA MIDE ANTIBIOT ICS) Drug Class Active High Hives 0 12-22 00:00: 00 MD Amy gibson [employer] Active Med Hives 12-22 00:00: 00 MD Amy gibson SULFA (SULFONA MIDE ANTIBIOT ICS) Drug Class Active High Hives 0 12-22 00:00: 00 MD Amy gibson [employer] Active Med Hives 12-22 00:00: 00 MD Amy gibson SULFA (SULFONA MIDE ANTIBIOT ICS) Drug Class Active High Hives 12-22 00:00: 00 MD Amy gibson [employer] Active Med Hives 12-22 00:00: 00 MD Amy gibson SULFA (SULFONA MIDE ANTIBIOT ICS) Drug Class Active High Hives 0 12-22 00:00: 00 MD Amy gibson [employer] Active Med Hives 12-22 00:00: 00 MD Amy gibson SULFA (SULFONA MIDE ANTIBIOT ICS) Drug Class Active High Hives 12-22 00:00: 00 MD Amy gibson [employer] Active Med Hives 12-22 00:00: 00 MD Amy gibson SULFA (SULFONA MIDE ANTIBIOT ICS) Drug Class Active High Hives 12-22 00:00: 00 MD Amy gibson [employer] Active Med Hives 12-22 00:00: 00 MD Amy gibson SULFA (SULFONA MIDE ANTIBIOT ICS) Drug Class Active High Hives 12-22 00:00: 00 MD Amy gibson [employer] Active Med Hives 12-22 00:00: 00 MD Amy gibson SULFA (SULFONA MIDE ANTIBIOT ICS) Drug Class Active High Hives 12-22 00:00: 00 MD Amy gibson [employer] Active Med Hives 12-22 00:00: 00 MD Amy gibson SULFA (SULFONA MIDE ANTIBIOT ICS) Drug Class Active High Hives 0 12-22 00:00: 00 MD Amy gibson [employer] Active Med Hives 12-22 00:00: 00 MD Amy gibson SULFA (SULFONA MIDE ANTIBIOT ICS) Drug Class Active High Hives 12-22 00:00: 00 MD Amy gibson SULFA (SULFONA MIDE ANTIBIOT ICS) Drug Class Active High Hives 0 12-22 00:00: 00 MD Amy gibson [employer] Active Med Hives 12-22 00:00: 00 MD Amy gibson SULFA (SULFONA MIDE ANTIBIOT ICS) Drug Class Active High Hives 12-22 00:00: 00 MD Amy gibson [employer] Active Med Hives 12-22 00:00: 00 MD Amy gibson SULFA (SULFONA MIDE ANTIBIOT ICS) Drug Class Active High Hives 12-22 00:00: 00 MD Amy gibson [employer] Active Med Hives 12-22 00:00: 00 MD Amy gibson SULFA (SULFONA MIDE ANTIBIOT ICS) Drug Class Active High Hives 12-22 00:00: 00 MD Amy gibson [employer] Active Med Hives 12-22 00:00: 00 MD Amy gibson SULFA (SULFONA MIDE ANTIBIOT ICS) Drug Class Active High Hives 12-22 00:00: 00 MD Amy gibson [employer] Active Med Hives 12-22 00:00: 00 MD Amy gibson [employer] Active Med Hives 12-22 00:00: 00 MD Amy gibson SULFA (SULFONA MIDE ANTIBIOT ICS) Drug Class Active High Hives 12-22 00:00: 00 MD Amy gibson [employer]UG INGREDI Active Med Hives 12-22 00:00: 00 MD Amy gibson SULFA (SULFONA MIDE ANTIBIOT ICS) Drug Class Active High Hives 12-22 00:00: 00 MD Amy gibson [employer]UG INGREDI Active Med Hives 12-22 00:00: 00 MD Amy gibson SULFA (SULFONA MIDE ANTIBIOT ICS) Drug Class Active High Hives 12-22 00:00: 00 MD Amy gibson [employer]UG INGREDI Active Med Hives 12-22 00:00: 00 MD Amy gibson SULFA (SULFONA MIDE ANTIBIOT ICS) Drug Class Active High Hives 12-22 00:00: 00 MD Amy gibson [employer]UG INGREDI Active Med Hives 12-22 00:00: 00 MD Amy gibson SULFA (SULFONA MIDE ANTIBIOT ICS) Drug Class Active High Hives 12-22 00:00: 00 Andjeanmarie gibson LAT[employer] DRUG INGREDI Active Med Hives 12-22 00:00: 00 MD Amy gibson SULFA (SULFONA MIDE ANTIBIOT ICS) Drug Class Active High Hives 12-22 00:00: 00 Andjeanmarie gibson LAT[employer] DRUG INGREDI Active Med Hives 12-22 00:00: 00 MD Amy gibson SULFA (SULFONA MIDE ANTIBIOT ICS) Drug Class Active High Hives 12-22 00:00: 00 MD Amy gibson [employer]UG INGREDI Active Med Hives 12-22 00:00: 00 MD Amy gibson SULFA (SULFONA MIDE ANTIBIOT ICS) Drug Class Active High Hives 12-22 00:00: 00 MD Amy gibson [employer]UG INGREDI Active Med Hives 12-22 00:00: 00 MD Amy gibson SULFA (SULFONA MIDE ANTIBIOT ICS) Drug Class Active High Hives 12-22 00:00: 00 MD Amy gibson [employer]UG INGREDI Active Med Hives 12-22 00:00: 00 MD Amy gibson SULFA (SULFONA MIDE ANTIBIOT ICS) Drug Class Active High Hives 12-22 00:00: 00 MD Amy gibson [employer] INGREDI Active Med Hives 12-22 00:00: 00 MD Amy gibson SULFA (SULFONA MIDE ANTIBIOT ICS) Drug Class Active High Hives 12-22 00:00: 00 MD Amy gibson [employer]UG INGREDI Active Med Hives 12-22 00:00: 00 MD Amy gibson SULFA (SULFONA MIDE ANTIBIOT ICS) Drug Class Active High Hives 12-22 00:00: 00 MD Amy gibson [employer]UG INGREDI Active Med Hives 12-22 00:00: 00 Andjeanmarie gibson SULFA (SULFONA MIDE ANTIBIOT ICS) Drug Class Active High Hives 12-22 00:00: 00 MD Amy gibson [employer]UG INGREDI Active Med Hives 12-22 00:00: 00 MD Amy gibson SULFA (SULFONA MIDE ANTIBIOT ICS) Drug Class Active High Hives 12-22 00:00: 00 MD Amy gibson [employer]UG INGREDI Active Med Hives 12-22 00:00: 00 MD Amy gibson SULFA (SULFONA MIDE ANTIBIOT ICS) Drug Class Active High Hives 12-22 00:00: 00 MD Amy gibson SULFA (SULFONA MIDE ANTIBIOT ICS) Drug Class Active High Hives 12-22 00:00: 00 Andjeanmarie gibson [employer]UG INGREDI Active Med Hives 12-22 00:00: 00 MD Amy gibson SULFA (SULFONA MIDE ANTIBIOT ICS) Drug Class Active High Hives 12-22 00:00: 00 MD Amy gibson [employer] INGR[employer]I Active Med Hives 12-22 00:00: 00 MD Amy gibson SULFA (SULFONA MIDE ANTIBIOT ICS) Drug Class Active High Hives 12-22 00:00: 00 MD Amy gibson LATEX DRUG INGREDI Active Med Hives 12-22 00:00: 00 MD Amy gibson SULFA (SULFONA MIDE ANTIBIOT ICS) Drug Class Active High Hives 12-22 00:00: 00 MD Amy gibson LATEX DRUG INGREDI Active Med Hives 12-22 00:00: 00 Andjeanmarie gibson LATEX DRUG INGREDI Active Med Hives 12-22 00:00: 00 MD Amy gibson SULFA (SULFONA MIDE ANTIBIOT ICS) Drug Class Active High Hives 12-22 00:00: 00 MD Amy gibson LATEX DRUG INGREDI Active Med Hives 12-22 00:00: 00 MD Amy gibson SULFA (SULFONA MIDE ANTIBIOT ICS) Drug Class Active High Hives 12-22 00:00: 00 MD Amy gibson LATEX DRUG INGREDI Active Med Hives 12-22 00:00: 00 MD Amy gibson SULFA (SULFONA MIDE ANTIBIOT ICS) Drug Class Active High Hives 12-22 00:00: 00 MD Amy gibson LATEX DRUG INGREDI Active Med Hives 12-22 00:00: 00 MD Amy gibson SULFA (SULFONA MIDE ANTIBIOT ICS) Drug Class Active High Hives 12-22 00:00: 00 MD Amy gibson SULFA (SULFONA MIDE ANTIBIOT ICS) Drug Class Active High Hives 12-22 00:00: 00 MD Amy gibson LATEX DRUG INGREDI Active Med Hives 12-22 00:00: 00 MD Amy gibson SULFA (SULFONA MIDE ANTIBIOT ICS) Drug Class Active High Hives 12-22 00:00: 00 MD Amy gibson LATEX DRUG INGREDI Active Med Hives 12-22 00:00: 00 MD Amy gibson SULFA (SULFONA MIDE ANTIBIOT ICS) Drug Class Active High Hives 12-22 00:00: 00 MD Amy gibson LATEX DRUG INGREDI Active Med Hives 12-22 00:00: 00 MD Amy gibson SULFA (SULFONA MIDE ANTIBIOT ICS) Drug Class Active High Hives 12-22 00:00: 00 MD Amy gibson LATEX DRUG INGREDI Active Med Hives 12-22 00:00: 00 MD Amy gibson LATEX DRUG INGREDI Active Med Hives 12-22 00:00: 00 MD Amy gibson SULFA (SULFONA MIDE ANTIBIOT ICS) Drug Class Active High Hives 12-22 00:00: 00 MD Amy gibson LATEX DRUG INGREDI Active Med Hives 12-22 00:00: 00 MD Amy gibson SULFA (SULFONA MIDE ANTIBIOT ICS) Drug Class Active High Hives 12-22 00:00: 00 MD Amy gibson LATEX DRUG INGREDI Active Med Hives 12-22 00:00: 00 MD Amy gibson SULFA (SULFONA MIDE ANTIBIOT ICS) Drug Class Active High Hives 12-22 00:00: 00 MD Amy gibson LATEX DRUG INGREDI Active Med Hives 12-22 00:00: 00 MD Amy gibson SULFA (SULFONA MIDE ANTIBIOT ICS) Drug Class Active High Hives 12-22 00:00: 00 MD Amy gibson LATEX DRUG INGREDI Active Med Hives 0 12-22 00:00: 00 MD Amy gibson SULFA (SULFONA MIDE ANTIBIOT ICS) Drug Class Active High Hives 12-22 00:00: 00 MD Amy gibson SULFA (SULFONA MIDE ANTIBIOT ICS) Drug Class Active High Hives 12-22 00:00: 00 MD Amy gibson LATEX DRUG INGREDI Active Med Hives 12-22 00:00: 00 MD Amy gibson SULFA (SULFONA MIDE ANTIBIOT ICS) Drug Class Active High Hives 12-22 00:00: 00 MD Amy gibson LATEX DRUG INGREDI Active Med Hives 12-22 00:00: 00 MD Amy gibson SULFA (SULFONA MIDE ANTIBIOT ICS) Drug Class Active High Hives 12-22 00:00: 00 MD Amy gibson LATEX DRUG INGREDI Active Med Hives 12-22 00:00: 00 MD Amy gibson SULFA (SULFONA MIDE ANTIBIOT ICS) Drug Class Active High Hives 12-22 00:00: 00 MD Amy gibson LATEX DRUG INGREDI Active Med Hives 12-22 00:00: 00 MD Amy gibson LATEX DRUG INGREDI Active Med Hives 12-22 00:00: 00 MD Amy gibson SULFA (SULFONA MIDE ANTIBIOT ICS) Drug Class Active High Hives 12-22 00:00: 00 MD Amy gibson LATEX DRUG INGREDI Active Med Hives 12-22 00:00: 00 MD Amy gibson SULFA (SULFONA MIDE ANTIBIOT ICS) Drug Class Active High Hives 12-22 00:00: 00 MD Amy gibson LATEX DRUG INGREDI Active Med Hives 12-22 00:00: 00 MD Amy gibson SULFA (SULFONA MIDE ANTIBIOT ICS) Drug Class Active High Hives 12-22 00:00: 00 MD Amy gibson LATEX DRUG INGREDI Active Med Hives 12-22 00:00: 00 MD Amy gibson SULFA (SULFONA MIDE ANTIBIOT ICS) Drug Class Active High Hives 12-22 00:00: 00 MD Amy gibson LATEX DRUG INGREDI Active Med Hives 12-22 00:00: 00 MD Amy gibson SULFA (SULFONA MIDE ANTIBIOT ICS) Drug Class Active High Hives 12-22 00:00: 00 MD Amy gibson LATEX DRUG INGREDI Active Med Hives 12-22 00:00: 00 MD Amy gibson SULFA (SULFONA MIDE ANTIBIOT ICS) Drug Class Active High Hives 12-22 00:00: 00 MD Amy gibson LATEX DRUG INGREDI Active Med Hives 12-22 00:00: 00 MD Amy gibson SULFA (SULFONA MIDE ANTIBIOT ICS) Drug Class Active High Hives 12-22 00:00: 00 MD Amy gibson LATEX DRUG INGREDI Active Med Hives 12-22 00:00: 00 MD Amy gibson SULFA (SULFONA MIDE ANTIBIOT ICS) Drug Class Active High Hives 12-22 00:00: 00 MD Amy gibson LATEX DRUG INGREDI Active Med Hives 12-22 00:00: 00 MD Amy gibson SULFA (SULFONA MIDE ANTIBIOT ICS) Drug Class Active High Hives 12-22 00:00: 00 MD Amy gibson LATEX DRUG INGREDI Active Med Hives 12-22 00:00: 00 MD Amy gibson SULFA (SULFONA MIDE ANTIBIOT ICS) Drug Class Active High Hives 12-22 00:00: 00 MD Amy gibson LATEX DRUG INGREDI Active Med Hives 12-22 00:00: 00 MD Amy gibson SULFA (SULFONA MIDE ANTIBIOT ICS) Drug Class Active High Hives 12-22 00:00: 00 MD Amy gibson Latex Latex Active Unknown [facility] Substanc e with sulfonam laure structur e and antibact erial mechanis m of action (substan ce) Substanc e with sulfonam laure structur e and antibact erial mechanis m of action (substan ce) Active Unknown [facility] Social History Social Habit Start Date Stop Date Quantity Comments Source History of Tobacco Use [facility] Sex Assigned At [facility] Smoking Status Start Date Stop Date Source Never Smoker [facility] Medications Ordered Medication Name Filled Medication Name Start Date Stop Date Current Medication? Ordering Clinician Indication Dosage Frequency Signature (SIG) Comments Components Source Myrbetriq 25 MG Myrbetriq 25 MG 11-07 00:00: 00 No 1{table t} QD Myrbetriq 25 MG traZODone HCl 100 MG traZODone HCl 100 MG No 1{table t_at_be dtime} QD traZODone HCl 100 MG Vitamin D3 250 MCG (19460 UT) Vitamin D3 250 MCG (38511 UT) No 1{capsu le} QD Vitamin D3 250 MCG (81113 UT) Lisinopril 10 MG Lisinopril 10 MG No 1{table t} QD Lisinopril 10 MG Furosemide 20 MG Furosemide 20 MG No 1{table t} QD Furosemide 20 MG Align 4 MG Align 4 MG No Align 4 MG Levothyroxi ne Sodium 100 MCG Levothyroxi ne Sodium 100 MCG No QD Levothyrox ine Sodium 100 MCG Rosuvastati n Calcium 5 MG Rosuvastati n Calcium 5 MG No 1{table t} QD Rosuvastat in Calcium 5 MG Letrozole 2.5 MG Letrozole 2.5 MG No 1{table t} QD Letrozole 2.5 MG traZODone HCl 100 MG traZODone HCl 100 MG No 1{table t_at_be dtime} QD traZODone HCl 100 MG Vitamin D3 250 MCG (30332 UT) Vitamin D3 250 MCG (27539 UT) No 1{capsu le} QD Vitamin D3 250 MCG (52918 UT) Lisinopril 10 MG Lisinopril 10 MG No 1{table t} QD Lisinopril 10 MG Furosemide 20 MG Furosemide 20 MG No 1{table t} QD Furosemide 20 MG Align 4 MG Align 4 MG No Align 4 MG Levothyroxi ne Sodium 100 MCG Levothyroxi ne Sodium 100 MCG No QD Levothyrox ine Sodium 100 MCG Rosuvastati n Calcium 5 MG Rosuvastati n Calcium 5 MG No 1{table t} QD Rosuvastat in Calcium 5 MG Letrozole 2.5 MG Letrozole 2.5 MG No 1{table t} QD Letrozole 2.5 MG traZODone HCl 100 MG traZODone HCl 100 MG No 1{table t_at_be dtime} QD traZODone HCl 100 MG Vitamin D3 250 MCG (34993 UT) Vitamin D3 250 MCG (87657 UT) No 1{capsu le} QD Vitamin D3 250 MCG (23080 UT) Lisinopril 10 MG Lisinopril 10 MG No 1{table t} QD Lisinopril 10 MG Furosemide 20 MG Furosemide 20 MG No 1{table t} QD Furosemide 20 MG Align 4 MG Align 4 MG No Align 4 MG Levothyroxi ne Sodium 100 MCG Levothyroxi ne Sodium 100 MCG No QD Levothyrox ine Sodium 100 MCG Rosuvastati n Calcium 5 MG Rosuvastati n Calcium 5 MG No 1{table t} QD Rosuvastat in Calcium 5 MG Letrozole 2.5 MG Letrozole 2.5 MG No 1{table t} QD Letrozole 2.5 MG Furosemide 20 MG Furosemide 20 MG No 1{table t} QD Furosemide 20 MG Vitamin D3 250 MCG (22099 UT) Vitamin D3 250 MCG (37016 UT) No 1{capsu le} QD Vitamin D3 250 MCG (86955 UT) Align 4 MG Align 4 MG No Align 4 MG traZODone HCl 100 MG traZODone HCl 100 MG No 1{table t_at_be dtime} QD traZODone HCl 100 MG Lisinopril 10 MG Lisinopril 10 MG No 1{table t} QD Lisinopril 10 MG Letrozole 2.5 MG Letrozole 2.5 MG No 1{table t} QD Letrozole 2.5 MG Levothyroxi ne Sodium 100 MCG Levothyroxi ne Sodium 100 MCG No QD Levothyrox ine Sodium 100 MCG Rosuvastati n Calcium 5 MG Rosuvastati n Calcium 5 MG No 1{table t} QD Rosuvastat in Calcium 5 MG Vital Signs Vital Name Observation Time Observation Value Comments S yamilet height 2023-11-08 11:00:00 66 [in_i] Commo n [facility] weight 2023-11-08 11:00:00 163 [lb_av] Comm on [facility] temperature 2023-11-08 11:00:00 97.2 [degF] Com [facility] bmi 2023-11-08 11:00:00 26.31 kg/m2 Comm on [facility] oximetry 2023-11-08 11:00:00 99 % Commo n [facility] respiratory rate 2023-11-08 11:00:00 18 /min [facility] blood pressure systolic 2023-11-08 11:00:00 136 mm[Hg] [facility] blood pressure diastolic 2023-11-08 11:00:00 76 mm[Hg] [facility] height 2023-08-24 11:30:00 66 [in_i] Commo n [facility] weight 2023-08-24 11:30:00 164 [lb_av] Comm on [facility] temperature 2023-08-24 11:30:00 97.4 [degF] Com [facility] bmi 2023-08-24 11:30:00 26.47 kg/m2 Comm on [facility] oximetry 2023-08-24 11:30:00 97 % Commo n [facility] respiratory rate 2023-08-24 11:30:00 18 /min Common [facility] blood pressure systolic 2023-08-24 11:30:00 132 mm[Hg] [facility] blood pressure diastolic 2023-08-24 11:30:00 68 mm[Hg] [facility] height 2023-06-15 11:30:00 66 [in_i] Commo n [facility] weight 2023-06-15 11:30:00 166.8 [lb_av] Co mmon [facility] temperature 2023-06-15 11:30:00 97.6 [degF] Com mon [facility] bmi 2023-06-15 11:30:00 26.92 kg/m2 Comm on [facility] oximetry 2023-06-15 11:30:00 87 % Commo n [facility] respiratory rate 2023-06-15 11:30:00 18 /min [facility] blood pressure systolic 2023-06-15 11:30:00 133 mm[Hg] [facility] blood pressure diastolic 2023-06-15 11:30:00 82 mm[Hg] [facility] WEIGHT 2020-11-04 09:24:00 77.5 kg Procedures Procedure Date / Time Performed Performing Clinicia n Source PVR 2023-06-15 00:00:00 [facility] Encounters Start Date/Time End Date/Time Encounter Type Admission Type Attending Clinicians Care Facility Care Department Encounter ID Source 2023-08-24 11:25:01 Outpatient [facility]LMLC ST[facility] [id number] [facility] 2023-06-15 10:58:00 Outpatient STLMLC STLMLC [id number] [facility] 2022-04-28 09:17:47 Outpatient SYSTEM, PROVIDER BRENTON FARRIS [id number] MD Amy gibson 2022-03-02 10:50:54 Outpatient SYSTEM, PROVIDER BRENTON FARRIS [id number] MD Amy gibson 2021-12-02 10:59:37 Outpatient BRENTON Lou/Hep/Nu t [id number] MD Amy gibson 2021-11-11 13:45:09 Outpatient SYSTEM, PROVIDER BRENTON FARRIS [id number] MD Amy gibson 2024-11-19 10:27:16 2024-11-19 11:34:13 Outpatient ZOË NEAL MDA, MDA [id number] MD Amy gibson 2023-11-30 12:31:01 2023-11-30 12:31:01 Outpatient ADIN DELEON MDA MDA [id number] MD Amy gibson 2023-11-22 13:22:58 2023-11-22 13:22:58 Outpatient ZOË NEAL MDA MDA [id number] MD Amy gibson 2023-11-08 00:00:00 2023-11-08 00:00:00 OFFICE VISIT ESTAB PT LEVEL 4 [facility]LMLC STLMLC [id number] [facility] 2023-09-14 00:00:00 2023-09-14 00:00:00 (PROC) Procedure STLMLC STLMLC [id number] [facility] 2023-08-24 00:00:00 2023-08-24 00:00:00 OFFICE VISIT ESTAB PT LEVEL 3 STLMLC STLMLC [id number] [facility] 2023-06-15 00:00:00 2023-06-15 00:00:00 OFFICE VISIT NEW PT LEVEL 4 STLMLC STLMLC [id number] [facility] 2022-11-23 11:36:33 2022-11-23 11:36:33 Outpatient ZOË NEAL MDA MDA [id number] MD Amy gibson 2022-06-21 10:04:56 2022-06-21 11:16:07 Outpatient ADIN DELEON MDA MDA [id number] MD Amy gibson 2022-06-17 05:21:00 2022-06-19 12:53:00 Inpatient ADIN DELEON MDA Colorec Sunitha [id number] MD Amy gibson 2022-06-18 19:45:05 2022-06-18 20:22:29 Inpatient ADIN DELEON MDA MDA [id number] MD Amy gibson 2022-06-16 17:00:00 2022-06-16 23:59:00 Outpatient ADIN DELEON MDA MDA [id number] MD Amy gibson 2022-06-16 10:22:33 2022-06-16 10:22:33 Outpatient ADIN DELEON MDA MDA [id number] MD Amy gibson 2022-06-16 09:46:47 2022-06-16 09:46:47 [facility] [id number] [facility]-16 06:55:15 2022-06-16 06:55:15 Outpatient ADIN DELEON MDA MDA [id number] MD Amy gibson 2022-06-15 10:45:00 2022-06-15 23:59:00 [id number] [facility] 2022-06-15 10:53:40 2022-06-15 11:04:00 Outpatient ADIN DELEON MDA MDA [id number] [facility] 2022-06-15 08:49:53 2022-06-15 10:44:00 Outpatient ADIN DELEON MDA MDA [id number] MD Amy gibson 2022-04-19 10:32:06 2022-04-19 11:40:28 Outpatient KAREN FOSTER MDA MDA [id number] [facility] 2022-04-07 10:27:06 2022-04-07 11:42:04 Outpatient ADIN DELEON MDA MDA [id number] [facility] 2022-04-07 09:52:35 2022-04-07 10:02:23 Outpatient KAREN FOSTER MDA MDA [id number] MD Amy gibson 2022-03-25 05:19:00 2022-04-04 16:00:00 Inpatient NAGA ADIN DELGADO MDA Colore[facility] Sunitha [id number] [facility] 2022-04-01 11:48:06 2022-04-01 12:53:28 Inpatient KAREN FOSTER MDA MDA [id number] MD Amy gibson 2022-03-28 16:38:44 2022-03-28 17:19:44 Inpatient ADIN DELEON MDA MDA [id number] MD Amy gibson 2022-03-25 06:02:23 2022-03-25 06:15:07 Inpatient ADIN DELEON MDA MDA [id number] MD Amy gibson 2022-03-23 10:00:00 2022-03-23 23:59:00 Outpatient TIM FITZPATRICK MDA MDA [id number] MD Amy gibson 2022-03-23 10:40:49 2022-03-23 12:32:01 Outpatient TIM FITZPATRICK MDA MDA [id number] MD Amy gibson 2022-03-23 09:41:47 2022-03-23 09:49:11 Outpatient TIM FITZPATRICK MDA MDA [id number] MD Amy gibson 2022-03-22 10:46:03 2022-03-22 14:09:04 Outpatient PATRICAI WATSON MDA MDA [id number] MD Amy gibson 2022-03-22 12:42:26 2022-03-22 12:42:26 Outpatient EL ADIN DELGADO MDA MDA [id number] MD Amy gibson 2022-03-21 10:12:31 2022-03-21 13:56:46 Outpatient EL ZOË KERR MDA MDA [id number] MD Amy gibson 2022-03-21 10:12:46 2022-03-21 10:12:46 Outpatient TIM FITZPATRICK MDA MDA [id number] MD Amy gibson 2022-02-17 08:48:09 2022-02-17 09:52:00 Outpatient EL DANNY ADIN MDA MDA [id number] MD Amy gibson 2022-02-17 08:26:13 2022-02-17 08:26:13 Outpatient NAGA ZOË KERR MDA MDA [id number] MD Amy gibson 2022-02-15 08:50:56 2022-02-15 23:59:00 Outpatient EL MDA MDA [id number] MD Amy gibson 2022-02-15 08:38:16 2022-02-15 08:49:00 Outpatient EL MDA MDA [id number] MD Amy gibson 2022-02-15 07:00:00 2022-02-15 08:37:00 Outpatient ZOË NEAL MDA MDA [id number] MD Amy gibson 2022-02-11 12:13:26 2022-02-11 23:59:00 Outpatient ZOË NEAL MDA MDA [id number] MD Amy gibson 2022-02-11 11:57:10 2022-02-11 12:11:41 Outpatient GIUSEPPE BACON MDA MDA [id number] MD Amy gibson 2022-02-11 08:13:17 2022-02-11 08:13:17 Outpatient ZOË NEAL MDA MDA [id number] MD Amy gibson 2022-02-03 10:48:34 2022-02-03 10:48:34 Outpatient ZOË NEAL MDA MDA [id number] MD Amy gibson 2022-01-31 12:34:22 2022-01-31 12:34:22 Outpatient ZOË NEAL MDA MDA [id number] MD Amy gibson 2021-11-30 13:25:40 2021-11-30 13:25:40 Outpatient ZOË NEAL MDA MDA [id number] MD Amy gibson 2021-11-25 10:48:43 2021-11-25 10:48:43 Outpatient ZOË NEAL MDA MDA [id number] MD Amy gibson 2021-11-19 14:29:59 2021-11-19 15:57:26 Outpatient ZOË NEAL MDA MDA [id number] MD Amy gibson 2021-09-30 15:18:00 2021-09-30 15:18:00 Outpatient Percy [place] [facility] [id number] [facility] 2021-05-18 09:00:00 2021-05-18 23:59:00 Outpatient ZOË NEAL MDA MDA [id number] MD Amy gibson 2021-05-18 11:59:52 2021-05-18 16:22:52 Outpatient ZOË NEAL MDA MDA [id number] MD Amy gibson 2021-05-10 10:41:37 2021-05-10 10:41:37 Outpatient ZOË NEAL MDA MDA [id number] MD Amy gibson 2020-11-04 09:14:24 2020-11-04 10:39:03 Outpatient ZOË NEAL MDA MDA [id number] MD Amy gibson 2020-09-30 00:00:00 2020-09-30 00:00:00 Outpatient ZOË NEAL MDA MDA [id number] MD Amy gibson 2020-09-25 10:19:03 2020-09-25 10:19:03 Outpatient ZOË NEAL MDA MDA [id number] MD Amy gibson 2020-09-25 10:18:32 2020-09-25 10:18:32 Outpatient ZOË NEAL MDA MDA [id number] MD Amy gibson 2020-09-25 00:00:00 2020-09-25 00:00:00 Outpatient ZOË NEAL MDA MDA [id number] MD Amy gibson 2020-09-25 00:00:00 2020-09-25 00:00:00 Outpatient ZOË NEAL MDA MDA [id number] MD Amy gibson 2020-03-26 10:53:08 2020-03-26 14:07:52 Outpatient ZOË NEAL MDA MDA [id number] MD Amy gibson 2020-03-25 09:22:02 2020-03-25 09:22:02 Outpatient ZOË NEAL MDA MDA [id number] MD Amy gibson 2020-03-25 09:21:46 2020-03-25 09:21:46 Outpatient ZOË NEAL MDA MDA [id number] MD Amy gibson Results Test Description Test Time Test Comments Results Result Co mments Source - XR ENEMA W/AIR 2021-10-01 07:45:[address] [facility] : 1950 Sex: F Name: DONNY OLIVEIRA [facility] : 1950 Age/S: 70 / F [id number] Unit #: [id number] Loc: [place] [address] Phys: Percy Pak MD Acct: [id number] Dis Date: Status: DEP CLI PHONE #: [phone] Exam Date: 09/30/2021 1705 FAX #: Reason: incomplete colonoscopy EXAMS: CPT: [id number] XR ENEMA W/AIR 27701 Fluoro Time: 318 DAP (Gy m2): Air Kerma (mGy): 102.4 EXAMINATION: Barium enema with double-contrast technique INDICATION: incomplete colonoscopy COMPARISON: None available RADIATION EXPOSURE: Fluoroscopy time: 318 seconds, Images: 8 radiographic exposures, Cumulative dose: 102 mGy LOCATION: S17 TECHNIQUE: Barium was introduced into the colon by gravity, followed by introduction of air into the colon. Radiographic and fluoroscopic images were obtained with patient in multiple positions and obliquities. At conclusion of exam, additional overhead radiographs were performed. There were no immediate complications. FINDINGS: Exam was limited by redundancy of colon, particularly in the right hemiabdomen/cecum. However, contrast was able to be distributed throughout the colon to level of cecum as evidenced by visualization of the appendix and terminal ileum. There is an 3 cm segment of narrowing at rectosigmoid junctions down to a diameter of approximately 1-2 cm, which persists throughout the course of exam, suggesting presence of stricture in this location. The remaining colon is normal in caliber and otherwise exhibits normal appearance of the haustral folds. There are scattered colonic diverticula. IMPRESSION: 1. There is a 3 cm segment of narrowing at rectosigmoid junction suggesting presence of stricture at this location which may be benign or neoplastic in nature. Recommend correlation with endoscopy. No other site of narrowing throughout the colon. 2. No obvious polyps. 3. Scattered colonic diverticula. PAGE 1 Signed Report (CONTINUED) Name: DONNY OLIVEIRA [facility] : 1950 Age/S: 70 / F [id number] Unit #: [id number] Loc: [place] [address] Phys: Percy Pak MD Acct: [id number] Dis Date: Status: DEP CLI PHONE #: [phone] Exam Date: 09/30/2021 1705 FAX #: Reason: incomplete colonoscopy EXAMS: CPT: [id number] XR ENEMA W/AIR 67815 Fluoro Time: 318 DAP (Gy m2): Air Kerma (mGy): 102.4 (Continued) at 0745 Reported and signed by: Edenilson Moralez M.D. CC: Percy Pak MD PAGE 2 Signed Report Name: DONNY OLIVEIRA [facility] : 1950 Age/S: 70 / F [id number] Unit #: [id number] Loc: [place] [address] Phys: Percy Pak MD Acct: [id number] Dis Date: Status: DEP CLI PHONE #: [phone] Exam Date: 09/30/2021 1705 FAX #: Reason: incomplete colonoscopy EXAMS: CPT: [id number] XR ENEMA W/AIR 60783 Fluoro Time: 318 DAP (Gy m2): Air Kerma (mGy): 102.4 (Continued) Technologist: Kelly Armendariz RT(R)(CT) Trnscb Date/Time: 10/01/2021 (0745) [email or web address] Orig Print D/T: S: 10/01/2021 (0748) PAGE 3 Signed Report
[2024-12-24] MEDS ORDERED: MORPHINE 4 MG/ML SYR ONE (21:18)
[2024-12-24] MEDS ORDERED: ONDANSETRON 4 MG/2 ML VIAL ONE (21:18)
[2024-12-24] MEDS ORDERED: NA CHLORIDE 0.9% 100 ML ONE (21:18)
[2024-12-24] MEDS ORDERED: METHOCARBAMOL 1,000 MG/10 ML VIAL ONE (21:18)
[2024-12-24] MEDS ORDERED: KETOROLAC 30 MG/ML INJ ONE (21:18)
[2024-12-24 21:21] LABS: Absolute Lymphocytes (CBC) 0.4 K/uL (0.7-4.9); Absolute Monocytes 0.5 K/uL (0.1-1.3); Absolute Neutrophil 10.6 K/uL (1.8-8.0); Basophils % 0.3 % (0-1.3); Eosinophils % 0.4 % (0-4.4); Hematocrit 39.4 % (36.0-45.0); Hemoglobin 13.6 g/dL (12.0-15.0); Lymphocytes % 3.7 % (15.3-44.8); MCH 29.3 pg (27.0-35.0); MCHC 34.5 g/dL (32.0-36.0); MCV 84.9 fL (80-100); MPV 7.2 fL (7.6-11.3); Monocytes % 4.6 % (3.3-12.3); Platelets 273 thou/uL (152-406); RBC Red Blood Cell Count 4.64 M/uL (3.86-4.86); Red Cell Distribution Width 13.6 % (12.1-15.2)
[2024-12-24 21:23] LABS: Blood Morphology Comment NOT SEEN (NOT SEEN); Platelet Estimate ADEQ; White Blood Cell Scan OK (OK)
[2024-12-24 21:38] LABS: Albumin 3.5 g/dL (3.4-5.0); Albumin/Globulin Ratio 1.1 (1.1-1.8); Anion Gap 10.8 mEq/L (5.0-15.0); Bilirubin Total 0.5 mg/dL (0.2-1.0); Globulin 3.2 g/dL (2.3-3.5); Potassium 3.8 mEq/L (3.5-5.1); Protein, Total 6.7 g/dL (6.4-8.2)
--- NOTE | 2024-12-24 21:48 | RAD REPORT ---
EXAMINATION: Humerus Right CLINICAL INDICATION: Female, 74 years old. right humerus FX RIGHT COMPARISON: No prior exam. FINDINGS: Displaced surgical neck fracture of the right humerus. The fracture likely involves the greater tuber osity.. IMPRESSION: Displaced right proximal humerus fracture.
--- NOTE | 2024-12-24 21:52 | RAD REPORT ---
EXAMINATION: Shoulder Right 2+ Views VIEWS: Two views CLINICAL INDICATION: Female, 74 years old. R shoulder pain RIGHT COMPARISON: No prior exam. IMPRESSION: Multipart displaced fracture of the right proximal humerus. No dislocation. Mild right AC joint degen erative changes. Fragmentation at the acromion is likely chronic. No dislocation.
--- NOTE | 2024-12-24 22:13 | ER ---
Nurse's Notes [facility] Name: Ena Lundberg Age: 74 yrs Sex: Female : 1950 Arrival Date: 12/24/2024 Time: 20:34 Bed 15 Private MD: Diagnosis: 2-part displaced fracture of surgical neck of right humerus;Displaced right proximal humerus fracture. Presentation: 12/24 20:44 Chief complaint: Patient states: knee gave out and patient fell, hitting right shoulder me1 on cement about 18:00. Bruise noted to anterior right shoulder. Pain 4/10 at rest, 7/10 with any movement. Coronavirus screen: Vaccine status: Patient reports receiving the 2nd dose of the covid vaccine. Ebola Screen: No symptoms or risks identified at this time. Initial Sepsis Screen: Does the patient meet any 2 criteria? No. Patient's initial sepsis screen is negative. Does the patient have a suspected source of infection? No. Patient's initial sepsis screen is negative. Risk Assessment: Do you want to hurt yourself or someone else? Patient reports no desire to harm self or others. Onset of symptoms was December 24, 2024 at 18:00. 20:44 Method Of Arrival: Ambulatory me1 20:44 Acuity: HANNA 4 me1 Historical: - Allergies: 20:47 Sulfa (Sulfonamide Antibiotics); me1 20:47 Latex, Natural Rubber; me1 - PMHx: 20:47 Hypothyroidism; Hypertensive disorder; insomnia; Gastroesophageal reflux disease; me1 Diverticulitis; endometrial cancer; - PSHx: 20:47 rotator cuff; Operative procedure on knee; bowel resection; Total abdominal me1 hysterectomy; - Immunization history:: Adult Immunizations up to date. - Infectious Disease History:: Denies. - Immunization history: Last tetanus immunization: unknown. - Social history:: Smoking status: Patient denies any tobacco usage or history of. - Family history:: not pertinent. Screenin:00 Abuse screen: Denies threats or abuse. Tuberculosis screening: No symptoms or risk rg5 factors identified. Primary Survey: 21:00 NO uncontrolled hemorrhage observed. A: The client is awake and alert. The airway is rg5 patent. Breathing/Chest: Spontaneous respiratory effort, equal unlabored respirations, breath sounds clear bilaterally, regular pattern, symmetrical chest rise and fall. Circulation: No external hemorrhage present. Regular and strong central pulse, skin warm/dry/normal color. Disability Pupils are equal, round, reactive to light and accommodation. Client is alert. Exposure/Environment: All clothing and personal items were removed. Forensic evidence collection is not deemed to be indicated at this time. Items placed in patient belonging bag. There is no evidence of uncontrolled external bleeding. Obvious injury(ies) are noted at this time: right shoulder. Assessment: 21:00 General: Appears in no apparent distress. comfortable, Behavior is calm, cooperative, rg5 appropriate for age. 21:00 Pain: Complains of pain in right shoulder Pain currently is 8 out of 10 on a pain rg5 scale. Quality of pain is described as aching. Neuro: Level of Consciousness is awake, alert, obeys commands, Oriented to person, place, time, situation. EENT: No deficits noted. Cardiovascular: Denies chest pain, Patient's skin is warm and dry. Respiratory: Airway is patent Trachea midline Respiratory effort is even, unlabored, Respiratory pattern is regular, symmetrical. GI: Abdomen is round non-distended, Abd is soft and non tender. : No signs and/or symptoms were reported regarding the genitourinary system. Derm: Skin is intact, Skin is dry, Skin is normal, Skin temperature is warm. Musculoskeletal: Bony deformity noted of right shoulder Swelling present in right shoulder. Injury Description: Deformity sustained to right shoulder. Vital Signs: 20:44 BP 116 / 79; Pulse 85; Resp 16; Temp 98.4; Pulse Ox 94% ; Weight 74.84 kg; Height 5 ft. me1 5 in. ; Pain 4/10; 22:00 BP 120 / 78; Pulse 84; Resp 18; Pulse Ox 99% ; Pain 2/10; rg5 20:44 Body Mass Index 27.46 (74.84 kg, 165.1 cm) me1 20:44 Pain Scale: Adult me1 22:00 Pain Scale: Adult rg5 Liz Coma Score: 21:00 Eye Response: spontaneous(4). Motor Response: obeys commands(6). Verbal Response: rg5 oriented(5). Total: 15. 12/25 19:44 Eye Response: spontaneous(4). Motor Response: obeys commands(6). Verbal Response: sp4 oriented(5). Total: 15. Trauma Score (Adult): 12/24 21:00 Eye Response: spontaneous(1); Verbal Response: oriented(1); Motor Response: obeys rg5 commands(2); Systolic BP: > 89 mm Hg(4); Respiratory Rate: 10 to 29 per min(4); [place] Score: 15; Trauma Score: 12 ED Course: 20:35 Patient arrived in ED. mr 20:38 Adriano Grover MD is Attending Physician. sp4 20:47 Triage completed. me1 20:47 Arm band placed on Patient placed. me1 21:00 Patient has correct armband on for positive identification. Bed in low position. Call rg5 light in reach. Side rails up X 1. Patient maintains SpO2 saturation greater than 95% on room air. 21:00 Patient maintains SpO2 saturation greater than 95% on room air. rg5 21:10 Inserted saline lock: 20 gauge in left antecubital area, using aseptic technique. Blood kj2 collected. Flushed with 10 mL NS. 21:12 Kunal Johnson, ANNA is Primary Nurse. rg5 21:31 Shoulder Right (2 View) XRAY In Process Unspecified. EDMS 21:31 Humerus Right XRAY In Process Unspecified. EDMS 22:04 Marlo Spicer MD is Referral Physician. sp4 Administered Medications: 21:21 Drug: TORadol - Ketorolac IVP 30 mg IVP once Route: IVP; Site: left antecubital; rg5 22:22 Follow up: Response: No adverse reaction; Pain is decreased rg5 21:21 Drug: Ondansetron IVP 4 mg IVP once; over 2 minutes Route: IVP; Site: left antecubital; rg5 22:22 Follow up: Response: No adverse reaction; Pain is decreased rg5 21:21 Drug: morphine IVP or IV 4 mg IVP once over 4 mins Route: IVP; Infused Over: 4 mins; rg5 Site: left antecubital; 22:22 Follow up: Response: No adverse reaction; Pain is decreased rg5 21:21 Drug: Methocarbamol IVPB 1 grams IVPB once over 1 hrs; (mix in NS 100 mL) Route: IVPB; rg5 Infused Over: 1 hrs; Site: left antecubital; 21:30 Follow up: IV Status: Completed infusion; IV Intake: 100ml rg5 22:17 Drug: HYDROcodone-acetaminophen PO 5 mg-325 mg 2 tabs PO once Route: PO; rg5 22:22 Follow up: Response: No adverse reaction rg5 Intake: 21:00 PO: 150ml (Water); Total: 150ml. rg5 21:30 IV: 100ml; Total: 250ml. rg5 Outcome: 22:12 Discharge ordered by . sp4 22:24 Patient left the ED. rg5 Signatures: Dispatcher [employer] EDKeisha Hurley, Reg Reg mr Adriano Grover MD MD sp4 Heavenly Galvan RN RN me1 Kunal Johnson RN RN rg5 Kindra Hammer RN RN kj2 Corrections: (The following items were deleted from the chart) 20:50 20:47 PSHx: diverticulitis; me1 me1
--- NOTE | 2024-12-24 22:13 | EDPHYS ---
Physician Documentation [facility] Name: Ena Lundberg Age: 74 yrs Sex: Female : 1950 Arrival Date: 12/24/2024 Time: 20:34 Bed 15 Private MD: ED Physician Adriano Grover HPI: 12/24 20:38 This 74 yrs old Female presents to ER via Unassigned with complaints of Fall sp4 Injury, Dislocated shoulder. 12/25 19:44 74-year-old female presents with acute injury to the right shoulder. Patient has sp4 moderate to severe pain around the right deltoid musculature with noticeable deformity close to the shoulder joint.. Historical: - Allergies: 12/24 20:47 Sulfa (Sulfonamide Antibiotics); me1 20:47 Latex, Natural Rubber; me1 - PMHx: 20:47 Hypothyroidism; Hypertensive disorder; insomnia; Gastroesophageal reflux disease; me1 Diverticulitis; endometrial cancer; - PSHx: 20:47 rotator cuff; Operative procedure on knee; bowel resection; Total abdominal me1 hysterectomy; - Immunization history:: Adult Immunizations up to date. - Infectious Disease History:: Denies. - Immunization history: Last tetanus immunization: unknown. - Social history:: Smoking status: Patient denies any tobacco usage or history of. - Family history:: not pertinent. ROS: 12/25 19:44 Constitutional: Negative for fever, chills, and weight loss, positive acute fall, sp4 positive acute right shoulder injury, positive right shoulder pain and deformity All other systems are negative, Exam: 19:44 Constitutional: This is a well developed, well nourished patient who is awake, alert, sp4 and in no acute distress. Positive for right shoulder discoloration and deformity indicative of proximal humerus fracture. Head/Face: Normocephalic, atraumatic. Eyes: Pupils equal round and reactive to light, extra-ocular motions intact. Lids and lashes normal. Conjunctiva and sclera are not injected. Cornea within normal limits. Periorbital areas with no swelling, redness, or edema. ENT: Nares patent. No nasal discharge, no septal abnormalities noted. Tympanic membranes are normal and external auditory canals are clear. Oropharynx with no redness, swelling, or masses, exudates, or evidence of obstruction, uvula midline. Mucous membranes moist. Neck: Trachea midline, no thyromegaly or masses palpated, and no cervical lymphadenopathy. Supple, full range of motion without nuchal rigidity, or vertebral point tenderness. Chest/axilla: Normal chest wall appearance and motion. Nontender with no deformity. No lesions are appreciated. Cardiovascular: Regular rate and rhythm with a normal S1 and S2. No gallops, murmurs, or rubs. Normal PMI, no JVD. No pulse deficits. Respiratory: Lungs have equal breath sounds bilaterally, clear to auscultation and percussion. No rales, rhonchi or wheezes noted. No increased work of breathing, no retractions or nasal flaring. Abdomen/GI: Soft, with normal bowel sounds. No distension or tympany. No guarding or rebound. No evidence of tenderness throughout. Back: No spinal tenderness. No costovertebral tenderness. Skin: Warm, dry with normal turgor. Normal color with no rashes, no lesions, and no evidence of cellulitis. MS/ Extremity: Pulses equal, no cyanosis. Neurovascular intact. Intact peripheral pulses, right proximal humerus deformity of the right shoulder discoloration indicative of proximal right humerus fracture. Neuro: Awake and alert, GCS 15, oriented to person, place, time, and situation. Cranial nerves II-XII grossly intact. Motor strength 5/5 in all extremities. Sensory grossly intact. Psych: Awake, alert, with orientation to person, place and time. Behavior, mood, and affect are within normal limits Vital Signs: 12/24 20:44 BP 116 / 79; Pulse 85; Resp 16; Temp 98.4; Pulse Ox 94% ; Weight 74.84 kg; Height 5 ft. me1 5 in. ; Pain 4/10; 22:00 BP 120 / 78; Pulse 84; Resp 18; Pulse Ox 99% ; Pain 2/10; rg5 20:44 Body Mass Index 27.46 (74.84 kg, 165.1 cm) me1 20:44 Pain Scale: Adult me1 22:00 Pain Scale: Adult rg5 Liz Coma Score: 21:00 Eye Response: spontaneous(4). Motor Response: obeys commands(6). Verbal Response: rg5 oriented(5). Total: 15. 12/25 19:44 Eye Response: spontaneous(4). Motor Response: obeys commands(6). Verbal Response: sp4 oriented(5). Total: 15. Trauma Score (Adult): 12/24 21:00 Eye Response: spontaneous(1); Verbal Response: oriented(1); Motor Response: obeys rg5 commands(2); Systolic BP: > 89 mm Hg(4); Respiratory Rate: 10 to 29 per min(4); Liz Score: 15; Trauma Score: 12 Procedures: 12/25 19:48 Splinting: Splint applied to anterior aspect of right shoulder using sling, Sling and sp4 swath. applied by myself. Examined by me, post splint application: neurovascular intact, 2+ distal pulses palpable, brisk capillary refill noted, Patient tolerated well. MDM: 12/24 20:41 Medical Screening Exam initiated sp4 22:03 ED course: EXAMINATION: Shoulder Right 2+ Views VIEWS: Two views CLINICAL INDICATION: sp4 Female, 74 years old. R shoulder pain RIGHT COMPARISON: No prior exam. IMPRESSION: Multi part displaced fracture of the right proximal humerus. No dislocation. Mild right AC joint degenerative changes. Fragmentation at the acromion is likely chronic. No dislocation. . ED course: EXAMINATION: Humerus Right CLINICAL INDICATION: Female, 74 years old. right humerus FX RIGHT COMPARISON: No prior exam. FINDINGS: Displaced surgical neck fracture of the right humerus. The fracture likely involves the greater tuberosity.. IMPRESSION: Displaced right proximal humerus fracture. . 12/25 19:47 Differential diagnosis: abrasion, closed head injury, contusion, fracture, multiple sp4 trauma, sprain, strain. Data reviewed: vital signs, nurses notes, lab test result(s), radiologic studies, plain films. Consideration of Admission/Observation Escalation of care including admission/observation considered. ED course: Patient was referred to Dr. Marlo Spicer for physical rehabilitation and nonoperative management of right shoulder right proximal humerus fracture.. 19:49 ED course: Patient was prescribed hydrocodone 10, 325 mg p.o. every 6 hours as needed sp4 pain for the total of 25 tabs. 12/24 20:55 Order name: CBC with Diff; Complete Time: 21:58 sp4 12/24 20:55 Order name: CMP; Complete Time: 21:58 sp4 12/24 21:24 Order name: CBC Smear Scan; Complete Time: 21:58 EDMS 12/24 20:55 Order name: Shoulder Right (2 View) XRAY; Complete Time: 21:58 sp4 12/24 20:55 Order name: Humerus Right XRAY; Complete Time: 21:58 sp4 12/24 20:55 Order name: IV Saline Lock; Complete Time: 21:14 sp4 12/24 20:55 Order name: Labs collected and sent; Complete Time: 21:14 sp4 Administered Medications: 12/24 21:21 Drug: TORadol - Ketorolac IVP 30 mg IVP once Route: IVP; Site: left antecubital; rg5 22:22 Follow up: Response: No adverse reaction; Pain is decreased rg5 21:21 Drug: Ondansetron IVP 4 mg IVP once; over 2 minutes Route: IVP; Site: left antecubital; rg5 22:22 Follow up: Response: No adverse reaction; Pain is decreased rg5 21:21 Drug: morphine IVP or IV 4 mg IVP once over 4 mins Route: IVP; Infused Over: 4 mins; rg5 Site: left antecubital; 22:22 Follow up: Response: No adverse reaction; Pain is decreased rg5 21:21 Drug: Methocarbamol IVPB 1 grams IVPB once over 1 hrs; (mix in NS 100 mL) Route: IVPB; rg5 Infused Over: 1 hrs; Site: left antecubital; 21:30 Follow up: IV Status: Completed infusion; IV Intake: 100ml rg5 22:17 Drug: HYDROcodone-acetaminophen PO 5 mg-325 mg 2 tabs PO once Route: PO; rg5 22:22 Follow up: Response: No adverse reaction rg5 Disposition: 12/25 19:48 Chart complete. sp4 Disposition Summary: 12/24/24 22:12 Discharge Ordered Notes: Location: Home sp4 Problem: new sp4 Symptoms: have improved sp4 Condition: Stable sp4 Diagnosis - 2-part displaced fracture of surgical neck of right humerus sp4 - Displaced right proximal humerus fracture. sp4 Followup: sp4 - With: Marlo Spicer MD - When: 5 - 6 days - Reason: Recheck today's complaints Discharge Instructions: - Discharge Summary Sheet sp4 - Humerus Fracture Treated With Immobilization, [id number] sp4 Forms: - Patient Portal Instructions sp4 Prescriptions: - Naprosyn 500 mg Oral tablet - take 1 tablet ORAL route 2 times per day take with food PRN pain; 30 tablet; sp4 Refills: 0, Product Selection Permitted - methocarbamol 750 mg Oral tablet - take 2 tablets ORAL route every 8 hours for 3 days PRN muscle pain; 60 tablet; sp4 Refills: 0, Product Selection Permitted Signatures: Dispatcher [employer] Adriano Garibay MD MD sp4 Heavenly Galvan RN RN me1 Kunal Johnson RN RN rg5 Corrections: (The following items were deleted from the chart) 12/24 20:50 20:47 PSHx: diverticulitis; me1 me1 20:55 20:55 Humerus Right+RAD.RAD.BRZ ordered. EDWI EDMS
[2024-12-24] MEDS ORDERED: HYDROCODONE/APAP 5/325 MG TAB ONE (22:17)
[2024-12-24 22:52] VITALS: BP 116/79; TEMP 98.4; O2SAT 94
== END 2024-12-24 22:24 | disposition home or self-care (01) ==
LOC: ER 20:34
DX: S42.221A 2-part displaced fracture of surgical neck of right humerus, initial encounter for closed fracture (principal); W18.30XA Fall on same level, unspecified, initial encounter
CPT/HCPCS: 85025; 36415; 80053; 73060; 73030; 96375; 96374; 99284; J2405; J2800